=== PATIENT | female | born 1985 | race American Indian/Alaskan Native ===

== ENCOUNTER 2017-05-26 04:14 | Day surgery (SDC) | payer BC ==
[2017-05-26] MEDS ORDERED: HYDROmorphone 1 MG/ML Syringe IVPUSH ONE (04:54)
[2017-05-26] MEDS ORDERED: Ondansetron 4 MG/2 ML SDV IVPUSH ONE (04:54)
[2017-05-26] MEDS ORDERED: Sodium Chloride 0.9% 1,000 ML IV SCH (05:00)
--- NOTE | 2017-05-26 05:00 | EDM.PDOC ---
<Demetrius Suarez - Last Filed: 05/26/17 06:49> ED HPI GENERAL MEDICAL PROBLEM - General Chief Complaint: Abdominal Pain Stated Complaint: BAD STOMACH PAIN Time Seen by Provider: 05/26/17 04:20 Source of Information: Reports: Patient History Limitations: Reports: No Limitations - History of Present Illness INITIAL COMMENTS - FREE TEXT/NARRATIVE: The patient states that she vomited sometime before midnight tonight, then developed sharp, burning epigastric pain around midnight. It was initially mild , but was severe enough to wake the patient around 03:00 this morning, and has become progressively worse since. The pain is worse if she is supine, better if she is upright. The pain does not radiate. She feels nauseated at this time. No recent constipation or diarrhea. No recent urinary symptoms. No recent fever. No prior similar symptoms. The patient has not tried any home remedies. Her last oral solid intake was a hamburger at 20:00 last night. Her last oral fluid intake was around midnight. The patient drove herself to the ED. The patient's PCP is Dr. Watson. Abdomen Pain Score (Numeric/FACES): 8 - Related Data Allergies Allergy/AdvReac Type Severity Reaction Status Date / Time turkey Allergy Headache Uncoded 06/01/16 03:44 Home Meds: Home Meds . 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 - Past Surgical History HEENT Surgical History: Reports: LASIK (bilateral) Social & Family History - Family History Family Medical History: Noncontributory - Tobacco Use Smoking Status *Q: Former Smoker Years of Tobacco use: 9 Packs/Tins Daily: 0 Used Tobacco, but Quit: Yes Month Tobacco Last Used: 2015 Second Hand Smoke Exposure: No - Caffeine Use Caffeine Use: Reports: Coffee, Tea Other Caffeine Use: Cup twice per week Caffeine Use Comment: may have a cup or two of coffee - Recreational Drug Use Recreational Drug Use: No ED ROS GENERAL - Review of Systems Review Of Systems: ROS reveals no pertinent complaints other than HPI. ED EXAM, GI/ABD - Physical Exam Exam: See Below Exam Limited By: No Limitations General Appearance: Alert, WD/WN, Mild Distress (Appears uncomfortable) Eyes: Bilateral: Normal Appearance, EOMI Ears: Normal External Exam, Hearing Grossly Normal Nose: Normal Inspection, No Blood Throat/Mouth: Normal Inspection, Normal Lips, Normal Voice, No Airway Compromise Head: Atraumatic, Normocephalic Neck: Normal Inspection, Full Range of Motion Respiratory/Chest: No Respiratory Distress, Lungs Clear, Normal Breath Sounds, No Accessory Muscle Use Cardiovascular: Normal Peripheral Pulses, Regular Rate, Rhythm, No Gallop, No JVD, No Murmur, No Rub GI/Abdominal Exam: Normal Bowel Sounds, Soft, No Organomegaly, No Distention, No Abnormal Bruit, No Mass, Tender (Right upper quadrant only. Nontender elsewhere, although palpation of the left abdomen induces pain in the right upper quadrant), Other (Obese) (Female) Exam: Deferred Rectal (Female) Exam: Deferred Back Exam: Normal Inspection, Full Range of Motion. No: CVA Tenderness (L), CVA Tenderness (R) Extremities: Normal Inspection, Normal Range of Motion, No Pedal Edema, Normal Capillary Refill Neurological: Alert, Oriented, Normal Cognition, No Motor/Sensory Deficits Psychiatric: Normal Affect Skin Exam: Warm, Dry, Intact, Normal Color, No Rash Course - Vital Signs Last Recorded V/S: Last Vital Signs Temp 36.8 C 05/26/17 13:58 Pulse 82 05/26/17 13:58 Resp 16 05/26/17 13:58 BP 106/57 L 05/26/17 13:58 Pulse Ox 97 05/26/17 13:58 - Orders/Labs/Meds Orders: Active Orders 24 hr Category Date Time Status Admission Status [Patient Status] [ADT] Routine ADT 05/26/17 11:01 Active Communication Order [RC] ROUTINE Care 05/26/17 12:30 Active Cooling Warming Measures [RC] ASDIRECTED Care 05/26/17 12:30 Active Notify Provider [RC] ASDIRECTED Care 05/26/17 12:30 Active Oxygen Therapy [RC] ASDIRECTED Care 05/26/17 12:30 Active Pulse Oximetry [RC] ASDIRECTED Care 05/26/17 12:30 Active Ready for Discharge [RC] PER UNIT ROUTINE Care 05/26/17 12:10 Active Vital Signs [RC] Q15M Care 05/26/17 12:30 Active Acetaminophen/HYDROcodone [[place] 325-5 MG] Med 05/26/17 12:57 Active 1 tab PO Q6H PRN HYDROmorphone [Dilaudid] Med 05/26/17 12:30 Active 0.5 mg IVPUSH Q15M PRN Lactated Ringers [Ringers, Lactated] 1,000 ml Med 05/26/17 09:30 Active IV .BOLUS Sodium Chloride 0.9% [Normal Saline] 1,000 ml Med 05/26/17 05:00 Active IV ASDIRECTED fentaNYL [Sublimaze] Med 05/26/17 12:30 Active 50 mcg IVPUSH Q5M PRN Schedule Procedure [COMM] Stat Oth 05/26/17 11:02 Ordered Medication Orders Hydrocodone Bitart/Acetaminophen ([place] 325-5 Mg) 1 tab PO Q6H PRN PRN Reason: Pain Fentanyl (Sublimaze) 50 mcg IVPUSH Q5M PRN PRN Reason: PAIN Hydromorphone HCl (Dilaudid) 0.5 mg IVPUSH Q15M PRN PRN Reason: Pain Sodium Chloride (Normal Saline) 1,000 mls @ 999 mls/hr IV ASDIRECTED RUPERT Last Admin: 05/26/17 05:08 Dose: 150 mls/hr Lactated Ringer's (Ringers, Lactated) 1,000 mls @ 150 mls/hr IV .BOLUS [facility] Last Admin: 05/26/17 10:30 Dose: 150 mls/hr Labs: Laboratory Tests 05/26/17 05/26/17 05/26/17 Range/Units 04:32 04:32 05:10 WBC 11.85 H (3.98-10.04) K/mm3 RBC 4.95 (3.98-5.22) M/mm3 Hgb 14.4 (11.2-15.7) gm/L Hct 42.2 (34.1-44.9) % MCV 85.3 (79.4-94.8) fl MCH 29.1 (25.6-32.2) pg MCHC 34.1 (32.2-35.5) g/dl RDW Std Deviation 40.2 (36.4-46.3) fL Plt Count 250 (182-369) K/mm3 MPV 9.3 L (9.4-12.3) fl Neutrophils % (Manual) 74 H (40-60) % Band Neutrophils % 3 (0-10) % Lymphocytes % (Manual) 19 L (20-40) % Atypical Lymphs % 0 % Monocytes % (Manual) 1 L (2-10) % Eosinophils % (Manual) 3 (0.7-5.8) % Basophils % (Manual) 0 L (0.1-1.2) Platelet Estimate Adequate RBC Morph Comment Normal Sodium (136-145) mEq/L Potassium (3.5-5.1) mEq/L Chloride (98-107) mEq/L Carbon Dioxide (21-32) mEq/L Anion Gap (5-15) BUN (7-18) mg/dL Creatinine (0.55-1.02) mg/dL Est Cr Clr Drug Dosing mL/min Estimated GFR (MDRD) (>60) mL/min BUN/Creatinine Ratio (14-18) Glucose (74-106) mg/dL Calcium (8.5-10.1) mg/dL Total Bilirubin (0.2-1.0) mg/dL AST (15-37) U/L ALT (14-59) U/L Alkaline Phosphatase (46-116) U/L C-Reactive Protein (<1.0) mg/dL Total Protein (6.4-8.2) g/dl Albumin (3.4-5.0) g/dl Globulin gm/dL Albumin/Globulin Ratio (1-2) Lipase (73-393) U/L Urine Color Yellow (Yellow) Urine Appearance Slt cloudy H (Clear) Urine pH 6.0 (5.0-8.0) Ur Specific [place] > or = 1.030 (1.005-1.030) Urine Protein Negative (Negative) Urine Glucose (UA) Negative (Negative) Urine Ketones Negative (Negative) Urine Occult Blood Negative (Negative) Urine Nitrite Negative (Negative) Urine Bilirubin Negative (Negative) Urine Urobilinogen 0.2 (0.2-1.0) Ur Leukocyte Esterase Negative (Negative) Urine RBC 0-5 (0-5) /hpf Urine WBC 0-5 (0-5) /hpf Ur Epithelial Cells 5-10 H (0-5) /hpf Urine Bacteria Few (FEW) /hpf Urine Mucus Moderate H (FEW) /hpf Urine HCG, Qual Negative (NEGATIVE) 05/26/17 05/26/17 05/26/17 Range/Units 05:10 05:10 08:30 WBC 14.93 H (3.98-10.04) K/mm3 RBC 4.72 (3.98-5.22) M/mm3 Hgb 13.6 (11.2-15.7) gm/L Hct 40.3 (34.1-44.9) % MCV 85.4 (79.4-94.8) fl MCH 28.8 (25.6-32.2) pg MCHC 33.7 (32.2-35.5) g/dl RDW Std Deviation 40.4 (36.4-46.3) fL Plt Count 239 (182-369) K/mm3 MPV 8.8 L (9.4-12.3) fl Neutrophils % (Manual) 79 H (40-60) % Band Neutrophils % 12 H (0-10) % Lymphocytes % (Manual) 7 L (20-40) % Atypical Lymphs % 0 % Monocytes % (Manual) 2 (2-10) % Eosinophils % (Manual) 0 L (0.7-5.8) % Basophils % (Manual) 0 L (0.1-1.2) Platelet Estimate Adequate RBC Morph Comment Normal Sodium 139 (136-145) mEq/L Potassium 3.6 (3.5-5.1) mEq/L Chloride 105 (98-107) mEq/L Carbon Dioxide 24 (21-32) mEq/L Anion Gap 13.6 (5-15) BUN 9 (7-18) mg/dL Creatinine 0.7 (0.55-1.02) mg/dL Est Cr Clr Drug Dosing 90.41 mL/min Estimated GFR (MDRD) > 60 (>60) mL/min BUN/Creatinine Ratio 12.9 L (14-18) Glucose 135 H (74-106) mg/dL Calcium 8.7 (8.5-10.1) mg/dL Total Bilirubin 0.4 (0.2-1.0) mg/dL AST 17 (15-37) U/L ALT 41 (14-59) U/L Alkaline Phosphatase 85 (46-116) U/L C-Reactive Protein 1.2 H* (<1.0) mg/dL Total Protein 7.7 (6.4-8.2) g/dl Albumin 3.5 (3.4-5.0) g/dl Globulin 4.2 gm/dL Albumin/Globulin Ratio 0.8 L (1-2) Lipase 84 (73-393) U/L Urine Color (Yellow) Urine Appearance (Clear) Urine pH (5.0-8.0) Ur Specific [place] (1.005-1.030) Urine Protein (Negative) Urine Glucose (UA) (Negative) Urine Ketones (Negative) Urine Occult Blood (Negative) Urine Nitrite (Negative) Urine Bilirubin (Negative) Urine Urobilinogen (0.2-1.0) Ur Leukocyte Esterase (Negative) Urine RBC (0-5) /hpf Urine WBC (0-5) /hpf Ur Epithelial Cells (0-5) /hpf Urine Bacteria (FEW) /hpf Urine Mucus (FEW) /hpf Urine HCG, Qual (NEGATIVE) Meds: Medications Generic Name Dose Route Start Last Admin Trade Name Freq PRN Reason Stop Dose Admin Hydrocodone Bitart/Acetaminophen 1 tab 05/26/17 12:57 [place] 325-5 Mg PO Q6H PRN Pain Fentanyl 50 mcg 05/26/17 12:30 Sublimaze IVPUSH Q5M PRN PAIN Hydromorphone HCl 0.5 mg 05/26/17 12:30 Dilaudid IVPUSH Q15M PRN Pain Sodium Chloride 1,000 mls @ 999 mls/hr 05/26/17 05:00 05/26/17 05:08 Normal Saline IV 150 mls/hr ASDIRECTED RUPERT Administration Lactated Ringer's 1,000 mls @ 150 mls/hr 05/26/17 09:30 05/26/17 10:30 Ringers, Lactated IV 150 mls/hr .BOLUS RUPERT Administration Discontinued Medications Generic Name Dose Route Start Last Admin Trade Name Freq PRN Reason Stop Dose Admin Bupivacaine HCl Confirm 05/26/17 10:44 05/26/17 11:24 Marcaine 0.5% Administered 05/26/17 10:45 15 ml Dose Administration 30 ml .ROUTE .STK-MED ONE Diatrizoate Meglum/Diatrizoate Sod 90 ml 05/26/17 07:05 05/26/17 07:21 Gastrografin 37% PO 05/26/17 07:06 90 ml ONETIME ONE Administration Dicyclomine HCl 20 mg 05/26/17 07:55 Bentyl PO 05/26/17 07:56 ONETIME ONE Fentanyl Confirm 05/26/17 10:47 Sublimaze Administered 05/26/17 10:48 Dose 250 mcg .ROUTE .STK-MED ONE Fentanyl Confirm 05/26/17 12:16 Sublimaze Administered 05/26/17 12:17 Dose 100 mcg .ROUTE .STK-MED ONE Hydromorphone HCl 1 mg 05/26/17 04:54 05/26/17 05:09 Dilaudid IVPUSH 05/26/17 04:55 1 mg ONETIME ONE Administration Hydromorphone HCl 0.5 mg 05/26/17 07:55 05/26/17 08:04 Dilaudid IVPUSH 05/26/17 07:56 0.5 mg ONETIME ONE Administration Hydromorphone HCl 0.5 mg 05/26/17 10:34 05/26/17 10:55 Dilaudid IVPUSH 05/26/17 10:35 0.5 mg ONETIME ONE Administration Hyoscyamine 0.125 mg 05/26/17 07:54 05/26/17 08:04 Hyomax-Sl SL 05/26/17 07:55 0.125 mg ONETIME ONE Administration Cefoxitin Sodium 2 gm/ Premix 50 mls @ 100 mls/hr 05/26/17 08:20 05/26/17 08: 30 IV 05/26/17 08:49 100 mls/hr ONETIME ONE Administration Metronidazole 500 mg/ Premix 100 mls @ 100 mls/hr 05/26/17 08:23 05/26/17 09: 03 IV 05/26/17 09:22 100 mls/hr ONETIME ONE Administration Lactated Ringer's Confirm 05/26/17 11:50 Ringers, Lactated Administered 05/26/17 11:51 Dose 1,000 mls @ as directed .ROUTE .STK-MED ONE Iopamidol 100 ml 05/26/17 07:05 05/26/17 07:21 Isovue-300 (61%) IVPUSH 05/26/17 07:06 100 ml ONETIME ONE Administration Metoclopramide HCl 7.5 mg 05/26/17 07:55 05/26/17 08:03 Reglan IVPUSH 05/26/17 07:56 7.5 mg ONETIME ONE Administration Midazolam HCl Confirm 05/26/17 10:47 Versed 1 Mg/Ml Administered 05/26/17 10:48 Dose 2 mg .ROUTE .STK-MED ONE Ondansetron HCl 4 mg 05/26/17 04:54 05/26/17 05:09 Zofran IVPUSH 05/26/17 04:55 4 mg ONETIME ONE Administration Ondansetron HCl Confirm 05/26/17 10:47 Zofran Administered 05/26/17 10:48 Dose 4 mg .ROUTE .STK-MED ONE Propofol Confirm 05/26/17 10:47 Diprivan 20 Ml Administered 05/26/17 10:48 Dose 200 mg .ROUTE .STK-MED ONE Rocuronium [place] Confirm 05/26/17 10:47 Zemuron Administered 05/26/17 10:48 Dose 50 mg .ROUTE .STK-MED ONE Sodium Chloride 10 ml 05/26/17 07:05 05/26/17 07:21 Saline Flush FLUSH 05/26/17 07:06 10 ml ONETIME ONE Administration - Re-Assessments/Exams Free Text/Narrative Re-Assessment/Exam: 05/26/17 06:20 Ultrasound of the right upper quadrant is read by [facility] as: 1. Diffuse hepatic steatosis, new from prior ultrasonography. 2. Otherwise unremarkable right upper quadrant ultrasound. No biliary ductal dilatation or evidence of acute cholecystitis. 05/26/17 07:[address] Turcios, and care of the patient turned over to him at this time, for change of shift. Departure - Departure Disposition: DC/Tfer to [facility] Clinical Impression: Appendicitis Qualifiers: Appendicitis type: acute appendicitis Acute appendicitis type: with localized peritonitis Qualified Code(s): K35.3 - Acute appendicitis with localized peritonitis - Discharge Information - My Orders Last 24 Hours: My Active Orders 05/26/17 09:30 Lactated Ringers [Ringers, Lactated] 1,000 ml IV .BOLUS - Assessment/Plan Last 24 Hours: My Active Orders 05/26/17 09:30 Lactated Ringers [Ringers, Lactated] 1,000 ml IV .BOLUS <Charles Turcios - Last Filed: 05/26/17 21:27> Past Medical History HEENT History: Reports: Otitis Media Social & Family History - Living Situation & Occupation Living situation: Reports: Occupation: Unemployed Course - Re-Assessments/Exams Free Text/Narrative Re-Assessment/Exam: 05/26/17 07:[address] Suarez at change of shift. Gallbladder ultrasound reviewed and no stones are evident, GB wall is perhaps mildly thickened. No obstruction of the common bile duct is evident. Pancreatic head appears normal. No dilatation of the extrahepatic ducts. White count was mildly elevated at 11.85 with a mild left shift of 74% neutrophils and 3% band cells at time of admission to the ED. She is facial contrast and will be going to CT within half an hour or so. 05/26/17 07:38 patient has returned from the CT suite. CT of the abdomen and pelvis has been performed with oral and IV contrast. Patient does have a moderate sized hiatal hernia with contrast within the distal esophagus. Remainder of the CT appears to be within normal limits .Normal liver, pancreas and gallbladder and spleen .Both kidneys and ureters are normal. Small fat- containing umbilical hernia noted. No abnormalities the bowel are appreciated other than mildly increased stool throughout the right hemicolon. She does have an appendicolith in the appendix appears to be mildly dilated but I don't see a lot of periappendiceal inflammation. No free fluid in the pelvis. Both ovaries are identified and appear to be normal. Therefore differential diagnosis is acute biliary colic versus hiatal hernia as a cause of her pain last night. 05/26/17 07:42 On examination she continues to have epigastric pain that radiates slightly up into the chest. Currently she relates it rates it as a 5 out of 10 with associated nausea. She certainly does not feel like she could eat. This strongly suggested that she has a bit of stomach herniated up into the diaphragmatic opening causing pain. We'll give her Levsin 0.125 mg sublingual Dilaudid 0.5 mg IV with Reglan 7.5 mg IV. 05/26/17 08:14 [facility] radiologist called and feels that the patient is exhibiting CT signs of acute appendicitis. Recognized the phlebolith(s) and he feels the appendix is dilated to upper limits of normal--1.1cm in greastest dimension with mild periappendiceal inflammation to suggest acute appendicitis. I will therefore have Dr. Coffey from the department of surgery consult in this regard. I discussed the findings with the patient and did examine her right lower quadrant and she is not guarding clinically. However on deep palpation over McBurney's point she is definitely very tender and on deep palpation she does reveal rebound tenderness. 05/26/17 08:[address] Coffey and he advises placing her on cefoxitin and Flagyl IV antibiotics and he will be in to see her this morning. Given cefoxitin 2 g IV and this will be followed by Flagyl 500 mg IV. 05/26/17 08:50 labs reveal an elevated white count now at 14.93 with an increased left shift of 79% neutrophils and 12% band cells. 05/26/17 10:34 abdominal pain is starting to come back. Will therefore repeat Dilaudid 0.5 mg IV. Departure - Departure Time of Disposition: 11:00 Condition: Fair
[2017-05-26] MEDS ORDERED: Diatrizoate Meglumine/Diatrizoate Sodium 37% 120 ML Bottle PO ONE (07:05)
[2017-05-26] MEDS ORDERED: Sodium Chloride 0.9% 10 ML Syringe FLUSH ONE (07:05)
[2017-05-26] MEDS ORDERED: Iopamidol 612 MG/ML 100 ML Bottle IVPUSH ONE (07:05)
[2017-05-26] MEDS ORDERED: Hyoscyamine 0.125 MG Tab.SL SL ONE (07:54)
[2017-05-26] MEDS ORDERED: Dicyclomine 10 MG Cap PO ONE (07:55)
[2017-05-26] MEDS ORDERED: HYDROmorphone 0.5 MG/0.5 ML Syringe IVPUSH ONE ×2 (07:55→10:34)
[2017-05-26] MEDS ORDERED: Metoclopramide 10 MG/2 ML SDV IVPUSH ONE (07:55)
[2017-05-26] MEDS ORDERED: cefOXitin 2 GM in Premix Bag 1 BAG IV ONE (08:20)
[2017-05-26] MEDS ORDERED: metroNIDAZOLE/Normal Saline 500 MG in Premix Bag 1 BAG IV ONE (08:23)
[2017-05-26] MEDS ORDERED: Lactated Ringers 1,000 ML IV SCH (09:30)
--- NOTE | 2017-05-26 10:19 | PCM.PREANE ---
Preanesthetic Assessment - Anesthesia/Transfusion/Family Hx Anesthesia History: Prior Anesthesia Without Reaction Family History of Anesthesia Reaction: No Transfusion History: No Prior Transfusion(s) - Review of Systems General: Fatigue, Malaise Pulmonary: Cough Cardiovascular: No Symptoms Gastrointestinal: Abdominal Pain, Constipation Neurological: No Symptoms Other: Reports: None - Physical Assessment NPO Status Date: 05/25/17 NPO Status Time: 07:00 Pulse: 70 O2 Sat by Pulse Oximetry: 98 Respiratory Rate: 19 Blood Pressure: 120/81 Temperature: 37.1 C Vital Signs: Last Vital Signs Temp 37.1 C 05/26/17 04:22 Pulse 70 05/26/17 04:22 Resp 19 05/26/17 04:22 BP 120/81 05/26/17 04:22 Pulse Ox 98 05/26/17 04:22 Height: 1.57 m Weight: 79.832 kg ASA Class: 2E Mental Status: Alert & Oriented x3 Airway Class: Mallampati = 2 Dentition: Reports: Normal Dentition, [place](s) Thyro-Mental Finger Breadths: 2 Mouth Opening Finger Breadths: 2 ROM/Head Extension: Full Lungs: Clear to Auscultation, Normal Respiratory Effort Cardiovascular: Regular Rate, Regular Rhythm, No Murmurs - Lab Values: Laboratory Last Values WBC 14.93 K/mm3 (3.98-10.04) H 05/26/17 08:30 RBC 4.72 M/mm3 (3.98-5.22) 05/26/17 08:30 Hgb 13.6 gm/L (11.2-15.7) 05/26/17 08:30 Hct 40.3 % (34.1-44.9) 05/26/17 08:30 MCV 85.4 fl (79.4-94.8) 05/26/17 08:30 MCH 28.8 pg (25.6-32.2) 05/26/17 08:30 MCHC 33.7 g/dl (32.2-35.5) 05/26/17 08:30 RDW Std Deviation 40.4 fL (36.4-46.3) 05/26/17 08:30 Plt Count 239 K/mm3 (182-369) 05/26/17 08:30 MPV 8.8 fl (9.4-12.3) L 05/26/17 08:30 Neutrophils % (Manual) 79 % (40-60) H 05/26/17 08:30 Band Neutrophils % 12 % (0-10) H 05/26/17 08:30 Lymphocytes % (Manual) 7 % (20-40) L 05/26/17 08:30 Atypical Lymphs % 0 % 05/26/17 08:30 Monocytes % (Manual) 2 % (2-10) 05/26/17 08:30 Eosinophils % (Manual) 0 % (0.7-5.8) L 05/26/17 08:30 Basophils % (Manual) 0 (0.1-1.2) L 05/26/17 08:30 Platelet Estimate Adequate 05/26/17 08:30 RBC Morph Comment Normal 05/26/17 08:30 Sodium 139 mEq/L (136-145) 05/26/17 05:10 Potassium 3.6 mEq/L (3.5-5.1) 05/26/17 05:10 Chloride 105 mEq/L (98-107) 05/26/17 05:10 Carbon Dioxide 24 mEq/L (21-32) 05/26/17 05:10 Anion Gap 13.6 (5-15) 05/26/17 05:10 BUN 9 mg/dL (7-18) 05/26/17 05:10 Creatinine 0.7 mg/dL (0.55-1.02) 05/26/17 05:10 Est Cr Clr Drug Dosing 90.41 mL/min 05/26/17 05:10 Estimated GFR (MDRD) > 60 mL/min (>60) 05/26/17 05:10 BUN/Creatinine Ratio 12.9 (14-18) L 05/26/17 05:10 Glucose 135 mg/dL (74-106) H 05/26/17 05:10 Calcium 8.7 mg/dL (8.5-10.1) 05/26/17 05:10 Total Bilirubin 0.4 mg/dL (0.2-1.0) 05/26/17 05:10 AST 17 U/L (15-37) 05/26/17 05:10 ALT 41 U/L (14-59) 05/26/17 05:10 Alkaline Phosphatase 85 U/L (46-116) 05/26/17 05:10 C-Reactive Protein 1.2 mg/dL (<1.0) H* 05/26/17 05:10 Total Protein 7.7 g/dl (6.4-8.2) 05/26/17 05:10 Albumin 3.5 g/dl (3.4-5.0) 05/26/17 05:10 Globulin 4.2 gm/dL 05/26/17 05:10 Albumin/Globulin Ratio 0.8 (1-2) L 05/26/17 05:10 Lipase 84 U/L (73-393) 05/26/17 05:10 Urine Color Yellow (Yellow) 05/26/17 04:32 Urine Appearance Slt cloudy (Clear) H 05/26/17 04:32 Urine pH 6.0 (5.0-8.0) 05/26/17 04:32 Ur Specific [place] > or = 1.030 (1.005-1.030) 05/26/17 04:32 Urine Protein Negative (Negative) 05/26/17 04:32 Urine Glucose (UA) Negative (Negative) 05/26/17 04:32 Urine Ketones Negative (Negative) 05/26/17 04:32 Urine Occult Blood Negative (Negative) 05/26/17 04:32 Urine Nitrite Negative (Negative) 05/26/17 04:32 Urine Bilirubin Negative (Negative) 05/26/17 04:32 Urine Urobilinogen 0.2 (0.2-1.0) 05/26/17 04:32 Ur Leukocyte Esterase Negative (Negative) 05/26/17 04:32 Urine RBC 0-5 /hpf (0-5) 05/26/17 04:32 Urine WBC 0-5 /hpf (0-5) 05/26/17 04:32 Ur Epithelial Cells 5-10 /hpf (0-5) H 05/26/17 04:32 Urine Bacteria Few /hpf (FEW) 05/26/17 04:32 Urine Mucus Moderate /hpf (FEW) H 05/26/17 04:32 Urine HCG, Qual Negative (NEGATIVE) 05/26/17 04:32 - Allergies Allergies/Adverse Reactions: Allergies Allergy/AdvReac Type Severity Reaction Status Date / Time turkey Allergy Headache Uncoded 06/01/16 03:44 - Anesthesia Plan Pre-Op Medication Ordered: None - Acknowledgements Anesthesia Type Planned: General Anesthesia Pt an Appropriate Candidate for the Planned Anesthesia: Yes Alternatives and Risks of Anesthesia Discussed w Pt/Guardian: Yes Pt/Guardian Understands and Agrees with Anesthesia Plan: Yes PreAnesthesia Questionnaire - Past Health History Medical/Surgical History: Denies Medical/Surgical History HEENT History: Reports: Otitis Media Respiratory History: Reports: Asthma Gastrointestinal History: Reports: GERD [employer] History: Reports: Endocrine/Metabolic History: Reports: Diabetes, Gestational, Obesity/BMI 30+ - Infectious Disease History Infectious Disease History: Reports: Hepatitis B, Other (See Below) Other Infectious Disease History: history of hep B in [place] in 1995, was cleared. - Past Surgical History HEENT Surgical History: Reports: LASIK (bilateral) - SUBSTANCE USE Smoking Status *Q: Former Smoker Tobacco Use Within Last Twelve Months: Cigarettes Second Hand Smoke Exposure: No Days Per Week of Alcohol Use: 0 Number of Drinks Per Day: 0 Total Drinks Per Week: 0 Recreational Drug Use History: No - HOME MEDS Home Medications: Home Meds . [No Known Home Meds] 05/26/17 [History] - CURRENT (IN HOUSE) MEDS Current Meds: Current Medications Sodium Chloride (Normal Saline) 1,000 mls @ 999 mls/hr IV ASDIRECTED RUPERT Last Admin: 05/26/17 05:08 Dose: 150 mls/hr Lactated Ringer's (Ringers, Lactated) 1,000 mls @ 150 mls/hr IV .BOLUS RUPERT Discontinued Medications Diatrizoate Meglum/Diatrizoate Sod (Gastrografin 37%) 90 ml PO ONETIME ONE Stop: 05/26/17 07:06 Last Admin: 05/26/17 07:21 Dose: 90 ml Dicyclomine HCl (Bentyl) 20 mg PO ONETIME ONE Stop: 05/26/17 07:56 Hydromorphone HCl (Dilaudid) 1 mg IVPUSH ONETIME ONE Stop: 05/26/17 04:55 Last Admin: 05/26/17 05:09 Dose: 1 mg Hydromorphone HCl (Dilaudid) 0.5 mg IVPUSH ONETIME ONE Stop: 05/26/17 07:56 Last Admin: 05/26/17 08:04 Dose: 0.5 mg Hyoscyamine (Hyomax-Sl) 0.125 mg SL ONETIME ONE Stop: 05/26/17 07:55 Last Admin: 05/26/17 08:04 Dose: 0.125 mg Cefoxitin Sodium 2 gm/ Premix 50 mls @ 100 mls/hr IV ONETIME ONE Stop: 05/26/17 08:49 Last Admin: 05/26/17 08:30 Dose: 100 mls/hr Metronidazole 500 mg/ Premix 100 mls @ 100 mls/hr IV ONETIME ONE Stop: 05/26/17 09:22 Last Admin: 05/26/17 09:03 Dose: 100 mls/hr Iopamidol (Isovue-300 (61%)) 100 ml IVPUSH ONETIME ONE Stop: 05/26/17 07:06 Last Admin: 05/26/17 07:21 Dose: 100 ml Metoclopramide HCl (Reglan) 7.5 mg IVPUSH ONETIME ONE Stop: 05/26/17 07:56 Last Admin: 05/26/17 08:03 Dose: 7.5 mg Ondansetron HCl (Zofran) 4 mg IVPUSH ONETIME ONE Stop: 05/26/17 04:55 Last Admin: 05/26/17 05:09 Dose: 4 mg Sodium Chloride (Saline Flush) 10 ml FLUSH ONETIME ONE Stop: 05/26/17 07:06 Last Admin: 05/26/17 07:21 Dose: 10 ml
[2017-05-26] MEDS ORDERED: Bupivacaine 0.5% 30 ML SDV ONE (10:44)
[2017-05-26] MEDS ORDERED: Ondansetron 4 MG/2 ML SDV ONE (10:47)
[2017-05-26] MEDS ORDERED: Propofol 200 MG/20 ML SDV ONE (10:47)
[2017-05-26] MEDS ORDERED: fentaNYL 250 MCG/5 ML SDV ONE (10:47)
[2017-05-26] MEDS ORDERED: Rocuronium 50 MG/5 ML Vial ONE (10:47)
[2017-05-26] MEDS ORDERED: Midazolam 1 MG/ML 2 ML SDV ONE (10:47)
--- NOTE | 2017-05-26 11:12 | US ---
Limited abdominal ultrasound: Multiple real-time images were obtained of the upper right abdomen. Comparison: Prior right upper quadrant abdominal ultrasound of 03/22/16 is available. Findings: Pancreas appears within normal limits. Liver shows no focal parenchymal abnormality. Liver may be slightly echogenic representing fatty infiltration. Gallbladder shows no gallstones. No gallbladder wall thickening or biliary duct dilatation is seen. Right kidney shows no hydronephrosis or mass. Right kidney has a length of 10.6 cm. Impression: 1. Fatty infiltration within the liver. This appears as an interval change from prior abdominal ultrasound. 2. No additional abnormality is identified on right upper quadrant abdominal ultrasound exam. Diagnostic code #3 I agree with preliminary report issued by [facility] ([facility] report finalized on 05/26/17, 7:16 AM Central Time)
[2017-05-26] MEDS ORDERED: Lactated Ringers 1,000 ML ONE (11:50)
--- NOTE | 2017-05-26 12:08 | PCM.OPNOTE ---
- General Post-Op/Procedure Note Date of Surgery/Procedure: 05/26/17 Operative Procedure(s): lap appy Findings: acute appendicitis Pre Op Diagnosis: acute appendicitis Post-Op Diagnosis: Same Anesthesia Technique: General ET Tube Primary Surgeon: Aries Coffey EBL in mLs: 0 Complications: None Condition: Good
[2017-05-26] MEDS ORDERED: fentaNYL 100 MCG/2 ML SDV ONE (12:16)
[2017-05-26] MEDS ORDERED: HYDROmorphone 0.5 MG/0.5 ML Syringe IVPUSH PRN (12:30)
[2017-05-26] MEDS ORDERED: fentaNYL 250 MCG/5 ML SDV IVPUSH PRN (12:30)
--- NOTE | 2017-05-26 12:31 | PCM.POSTAN ---
POST ANESTHESIA ASSESSMENT - MENTAL STATUS Mental Status: Alert, Oriented - VITAL SIGNS Pulse Rate: 109 SaO2: 97 Resp Rate: 20 Blood Pressure: 98/45 Temperature: 36.8 C - RESPIRATORY Respiratory Status: Respiratory Rate WNL, Airway Patent, O2 Saturation Stable, Supplemental Oxygen - CARDIOVASCULAR CV Status: Pulse Rate WNL, Blood Pressure Stable - GASTROINTESTINAL GI Status: No Symptoms - PAIN Pain Score: 0 - POST OP HYDRATION Hydration Status: Adequate & Stable - OBSERVATIONS Free Text/Narrative:: no anesthesia complications noted
[2017-05-26] MEDS ORDERED: Acetaminophen/HYDROcodone 325-5 MG Tab PO PRN (12:57)
--- NOTE | 2017-05-26 13:55 | CT ---
CT abdomen and pelvis Technique: Multiple axial sections were obtained from above the dome of the diaphragm inferiorly through the pubic symphysis. Intravenous and oral contrast was utilized. Delayed images were also obtained through the bladder. Comparison: Previous right upper quadrant abdominal ultrasound performed earlier on the same date (5:25 AM), no previous CT examination. Findings: Appendix is dilated and contains appendicoliths. Findings are felt compatible with early appendicitis. Visualized lung bases show nothing acute. Liver shows mild fatty infiltration. Focal abnormality is seen next to the ligament teres fissure which is compatible with focal fat which is a normal variant. Spleen appears within normal limits. Contrast is seen within the distal esophagus compatible with reflux. Adrenal glands show no nodule. Kidneys show symmetric contrast enhancement without hydronephrosis or mass. Fat containing umbilical hernia is noted. Aorta shows no aneurysmal dilatation. No retroperitoneal adenopathy or mesenteric abnormalities are seen. No pelvic mass or adenopathy is seen. Delayed images show contrast within the distal ureters and within the bladder. Bone window settings were reviewed which appear within normal limits for the patient's age. Impression: 1. Dilated appendix containing appendicoliths compatible with early appendicitis. 2. Fatty infiltration within the liver and other incidental findings. Diagnostic code #5 I agree with preliminary report issued by [facility] ([facility] report finalized on 05/26/17, 9:15 AM Central Time)
[2017-05-26 14:02] VITALS: BP 106/57
--- NOTE | 2017-05-26 18:39 | HP ---
DATE OF ADMISSION: 05/26/2017 HISTORY OF PRESENT ILLNESS: This is a 31-year-old who noted vomiting some time around midnight, then sharp burning epigastric pain at midnight, initially mild but was severe enough to awaken the patient again about 3 o'clock this morning, became progressively worse. The pain seems to be better. She is upright. She came into the emergency room and evaluation of ultrasound was done showing a normal gallbladder. CT scan was then performed showing acute appendicitis. This pain was preceded by a diet of hamburger at about 10 o'clock. REVIEW OF SYSTEMS: No chest pain, shortness of breath, cough, hoarseness, wheezing, fainting, weakness, numbness, or convulsions. Did have some nausea and vomiting. FAMILY HISTORY: Mother has Parkinson's. CURRENT MEDICATIONS: None. SOCIAL HISTORY: No smoking, no drinking. Negative. PHYSICAL EXAMINATION: VITAL SIGNS: Reveals a temperature of 37, pulse 70, respirations 19, blood pressure 120/81. EYES: Sclerae are white. Extraocular muscle motion normal. Oral cavity: Healthy mucous membrane with mouth and tongue. NECK: Supple. No nodes. No thyromegaly. LUNGS: Clear. No rales, rhonchi, fremitus, or dullness. HEART: Heart tones regular rate. No S3, S4, jugular venous distention or murmurs. ABDOMEN: Shows tenderness to deep palpation in the right lower quadrant. No guarding. EXTREMITIES: No angulation deformities. NEUROLOGIC: Orientated x3. No sensorineural deficit. Cranial nerves 3 through 12 intact. PSYCHIATRIC: Normal. SKIN: Warm and dry. LABORATORY DATA: White count 11,000, hemoglobin 14. Urinalysis is negative. Electrolytes normal except for a C-reactive protein at 1.2. ASSESSMENT: Acute appendicitis. PLAN: Laparoscopic appendectomy. Discussed this procedure, the risks, the complications, understands and consented. We will proceed on an urgent basis. We will give antibiotics prior to going to the operating room and in the emergency room Flagyl and cefoxitin. MMODAL /[id number]
--- NOTE | 2017-05-27 07:33 | OR ---
DATE OF OPERATION: 05/26/2017 SURGEON: Aries Coffey MD PREOPERATIVE DIAGNOSIS: Acute appendicitis. POSTOPERATIVE DIAGNOSIS: Acute appendicitis. OPERATION PERFORMED: Laparoscopic appendectomy. ANESTHESIA: General anesthetic. ESTIMATED BLOOD LOSS: 0 mL. DESCRIPTION OF PROCEDURE: The patient was taken to the operating room, placed in a supine position, given a general anesthetic. Antibiotics were given. SCDs were placed and she was intubated. The abdomen was prepped with chlorhexidine prep, draped off in a sterile fashion. Incision was made just below the umbilicus, carried down by sharp dissection to the fascia, which was incised, abdominal cavity entered. Sondra trocar placed and secured with stay sutures, and a pneumoperitoneum established. A 5 mm 30-degree camera was inserted and the patient was placed in reverse Trendelenburg with leftward tilt showing the appendix in the right lower quadrant. A 5-mm trocar was placed in right upper quadrant and 1 in the right lower quadrant and a window was made at the base of the cecum and mesoappendix and Ethicon Endo-ligator was placed through this window, fired the appendix from the cecum. Another firing of the Endo-ligator the mesoappendix from the appendix. Endo-ligator was removed from the abdominal cavity and the appendix was placed in an Endobag and removed from the abdominal cavity. It was inspected and all parts were noted in the bag. Pneumoperitoneum was re-established. The area was checked and excellent hemostasis was noted and secured mesoappendix and there was secured appendicular stump. It was then aspirated fluid. This completed the intraabdominal portion. The ports were removed and the subumbilical port was closed with running 0 Vicryl suture and the skin of each port closed with subdermal 4-0 Dexon suture. Each port skin was injected with 0.5% Marcaine. Sterile dressings placed. The patient tolerated the procedure and sent to recovery room in a stable condition. MMAICHA /[id number]
== END 2017-05-26 14:12 | disposition home or self-care (01) ==
LOC: JD.ED 04:14 → JD.SDS 11:00
PROVIDERS: ATTEND Surgery
DX: K35.80 Unspecified acute appendicitis (principal); Z91.018 Allergy to other foods
CPT/HCPCS: 36415; 44970; 74177; 76705; 80053; 81001; 81025; 83690; 85025; 86140; 87804; 96361; 96365; 96367; 96375; 96376; 99285; A9270; J0694; J1170; J2250; J2405; J2765; J3010; J7040; J7050; J7120; Q9963; Q9967; 00840; 99284; J2704

== ENCOUNTER 2018-08-31 05:09 | Inpatient (IN) | payer BC ==
[2018-08-31] MEDS ORDERED: Nalbuphine 20 MG/ML 1 ML Syringe IVPUSH PRN (07:31)
[2018-08-31] MEDS ORDERED: Sodium Chloride 0.9% 10 ML Syringe FLUSH PRN (07:31)
[2018-08-31] MEDS ORDERED: Oxytocin/Lactated Ringers 10 UNIT/1,000 ML BAG IV SCH (07:45)
[2018-08-31] MEDS: Lactated Ringers 1,000 ML IV SCH ×3 (08:13→18:37)
[2018-08-31] MEDS: Oxytocin/Lactated Ringers 10 UNIT/1,000 ML BAG IV SCH ×2 (08:14→19:48)
--- NOTE | 2018-08-31 08:40 | PCM.PREANE ---
Preanesthetic Assessment - Procedure Proposed Procedure: des - Anesthesia/Transfusion/Family Hx Anesthesia History: Prior Anesthesia Without Reaction Family History of Anesthesia Reaction: No Transfusion History: No Prior Transfusion(s) - Review of Systems General: No Symptoms Pulmonary: No Symptoms Cardiovascular: No Symptoms Gastrointestinal: No Symptoms Neurological: No Symptoms Other: Reports: None - Physical Assessment Pulse: 94 Respiratory Rate: 20 Blood Pressure: 116/73 Height: 5 ft 2 in Weight: 93.894 kg ASA Class: 2 Mental Status: Alert & Oriented x3 Airway Class: Mallampati = 1 Dentition: Reports: Normal Dentition Thyro-Mental Finger Breadths: 3 Mouth Opening Finger Breadths: 3 ROM/Head Extension: Full Lungs: Clear to Auscultation, Normal Respiratory Effort Cardiovascular: Regular Rate, Regular Rhythm - Lab Values: Laboratory Last Values WBC 9.15 K/mm3 (3.98-10.04) 08/31/18 07:43 RBC 4.26 M/mm3 (3.98-5.22) 08/31/18 07:43 Hgb 11.0 gm/L (11.2-15.7) L 08/31/18 07:43 Hct 33.7 % (34.1-44.9) L 08/31/18 07:43 MCV 79.1 fl (79.4-94.8) L 08/31/18 07:43 MCH 25.8 pg (25.6-32.2) 08/31/18 07:43 MCHC 32.6 g/dl (32.2-35.5) 08/31/18 07:43 RDW Std Deviation 39.1 fL (36.4-46.3) 08/31/18 07:43 Plt Count 269 K/mm3 (182-369) 08/31/18 07:43 MPV 8.9 fl (9.4-12.3) L 08/31/18 07:43 Neut % (Auto) 73.5 % (34.0-71.1) H 08/31/18 07:43 Lymph % (Auto) 13.1 % (19.3-51.7) L 08/31/18 07:43 [place] % (Auto) 11.4 % (4.7-12.5) 08/31/18 07:43 Eos % (Auto) 1.3 (0.7-5.8) 08/31/18 07:43 Baso % (Auto) 0.2 % (0.1-1.2) 08/31/18 07:43 Neut # (Auto) 6.72 K/mm3 (1.56-6.13) H 08/31/18 07:43 Lymph # (Auto) 1.20 K/mm3 (1.18-3.74) 08/31/18 07:43 [place] # (Auto) 1.04 K/mm3 (0.24-0.36) H 08/31/18 07:43 Eos # (Auto) 0.12 K/mm3 (0.04-0.36) 08/31/18 07:43 Baso # (Auto) 0.02 K/mm3 (0.01-0.08) 08/31/18 07:43 - Allergies Allergies/Adverse Reactions: Allergies Allergy/AdvReac Type Severity Reaction Status Date / Time turkey Allergy Headache Uncoded 08/26/18 01:40 - Blood Blood Available: No - Acknowledgements Anesthesia Type Planned: Epidural Pt an Appropriate Candidate for the Planned Anesthesia: Yes Alternatives and Risks of Anesthesia Discussed w Pt/Guardian: Yes Pt/Guardian Understands and Agrees with Anesthesia Plan: Yes PreAnesthesia Questionnaire - Past Health History Medical/Surgical History: Denies Medical/Surgical History HEENT History: Reports: Otitis Media Cardiovascular History: Reports: None Respiratory History: Reports: Asthma Gastrointestinal History: Reports: GERD 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 - Past Surgical History HEENT Surgical History: Reports: LASIK GI Surgical History: Reports: Appendectomy - History Comment History Comment: vits, iron and albuteral inhaler prn - SUBSTANCE USE Smoking Status *Q: Former Smoker (quit 2015) Tobacco Use Within Last Twelve Months: No Second Hand Smoke Exposure: No Days Per Week of Alcohol Use: 0 Recreational Drug Use History: No - HOME MEDS Home Medications: Home Meds Pnv with Ca,No.74/Iron/Fa [ Low Iron Tablet] 1 tab PO DAILY 03/10/18 [ History] - CURRENT (IN HOUSE) MEDS Current Meds: Current Medications Lactated Ringer's (Ringers, Lactated) 1,000 mls @ 100 mls/hr IV ASDIRECTED RUPERT Last Admin: 08/31/18 08:13 Dose: 100 mls/hr Oxytocin/Lactated Ringer's (Pitocin In Lr 10 Units/1,000 Ml) 10 unit in 1,000 mls @ 12 mls/hr IV TITRATE RUPERT; Protocol Last Admin: 08/31/18 08:14 Dose: 2 munits/min, 12 mls/hr Oxytocin/Lactated Ringer's (Pitocin In Lr 10 Units/1,000 Ml) 10 unit in 1,000 mls @ 500 mls/hr IV .CONTINUOUS RUPERT Nalbuphine HCl (Nubain) 10 mg IVPUSH Q2H PRN PRN Reason: pain Sodium Chloride (Saline Flush) 10 ml FLUSH ASDIRECTED PRN PRN Reason: Keep Vein Open
[2018-08-31] MEDS ORDERED: diphenhydrAMINE 50 MG/ML SDV IVPUSH PRN ×2 (08:43→16:00)
[2018-08-31] MEDS ORDERED: ePHEDrine 50 MG/ML SDV IVPUSH PRN ×2 (08:43→16:00)
[2018-08-31] MEDS ORDERED: fentaNYL 100 MCG/2 ML SDV EPIDUR PRN ×2 (08:43→16:00)
[2018-08-31] MEDS ORDERED: fentaNYL/Bupivacaine-NS 2 MCG/ML-0.125%/PF 100 ML Bag EPIDUR ONE ×2 (08:43→16:00)
[2018-08-31] MEDS ORDERED: Lidocaine 1.5% with EPINEPHrine 1:200,000 5 ML Amp ONE (22:00)
[2018-08-31] MEDS ORDERED: Bupivacaine 0.25% 10 ML SDV ONE (22:00)
[2018-09-01] MEDS ORDERED: fentaNYL/Bupivacaine-NS 2 MCG/ML-0.125%/PF 100 ML Bag EPIDUR ONE (01:01)
--- NOTE | 2018-09-01 05:40 | PCM.LDHP ---
L&D History of Present Illness - General Date of Service: 08/31/18 Admit Problem/Dx: Patient Status Order with Admit Dx/Problem 08/31/18 07:31 Patient Status [ADT] Routine Admission Diagnosis/Problem Admission Diagnosis/Problem 09/01/18 08:27 Kylie is a 33-year-old 2 para 1001 female admitted to labor and delivery at 39-1/7 weeks gestational age with an JANES of 09/06/2008. She is admitted for elective induction of labor. Source of Information: Patient History Limitations: Reports: No Limitations - History of Present Illness Introduction:: This is a 33-year-old 2 para 1001 female with an JANES of 2018 presently at 39-1/7 weeks gestational age admitted for elective induction of labor on 08/31/2018. Patient has a history of gestational diabetes but is been under reasonably good control. She is felt to have a large baby for clinical exam. Her JANES of 09/06/2018 is based on an ultrasound on 02/21/2018 at 10-1/7 weeks gestational age. This supported by 3 other ultrasounds done on 04/29/2018, 08/06/2018 and 08/09/2018. Her course other than diagnosis of gestational diabetes has been relatively unremarkable. First visit was on 02/21/2018. Been seen on a regular basis with fundal height growth as appropriate. Weight gain has been from 186-205 pounds for 19 pound weight gain. Last menstrual period was 11/23/2017. Previous obstetric history includes the followin normal spontaneous vaginal delivery at 39-3/7 weeks gestational age. She was induced at that time. She had an 8 lbs. 8 oz. baby and labor was 36 hours in length. She plans to breast-feed with this labs show blood to be O+ with a negative and by screen. Initial first labs showed hemoglobin 12.9 g/dL and platelets 241,000. She is rubella immune, RPR is nonreactive. Urine culture was negative. Hepatitis B surface antigen and HIV assays were both negative. Chlamydia and gonorrhea were both negative. Second trimester laboratory testing showed hemoglobin is 11.9 g/dL and platelets over 232, At that time patient was started on iron supplementation with ferrous sulfate 325 mg per day.Her 1 hour GTT was elevated at 149. She failed her 3 glucose tolerance test with levels of 104 fasting. Her 1 hour was 210, 2 hour was 145 and her 3 hour was 109 g/dL. She was started on dietary restriction and was seen by conservation educator which time she started blood sugar evaluation 4 times per day. With her dietary regulation she maintained relatively good blood sugar levels. Her group B strep screen was negative. Allergies: None. Medications: 1. vitamins daily 2. Ferrous sulfate 325 mg by mouth daily Past medical history: 1. Normal spontaneous vaginal delivery on 06/15/2016 2. Gestational diabetes 3. Asthma Past surgical history: Unremarkable Family history: Mother is alive with Parkinson's disease. Father is alive and healthy. 2 brothers and 2 sisters are all healthy. Paternal grandfather has history of diabetes. Maternal grandmother is healthy. Paternal grandfather has diabetes. Paternal grandmother is healthy. Paternal aunt has history of breast cancer. There is no other family history of cancer, bleeding, blood clotting problems and no related issues or asthma otherwise noted either. New prep social history. Patient is . She is working at a [employer] facility. She does not use any significant most alcohol, drugs or tobacco. She and her Adam lives in [place], [place]. Review of systems: In general patient has no complaints. Baby has been active. Skin: Negative Lungs: No infectious symptoms or shortness of breath Cardiovascular: No chest pain or exercise intolerance Breasts: No lumps, changes in size, pain, dimpling, discharge or axillary or supraclavicular concerns. She has a changes associated with . GI: Negative : Negative other than changes associated with . Musculoskeletal: Negative Neurological: Negative In general the patient is well-developed, well-nourished, pleasant female of stated age in no acute distress. Skin is warm dry without lesions. HEENT, neck and back within normal limits. Lungs are clear with good breath sounds in all lung cai. Cardiovascular exam shows regular and rhythm without murmurs. Breast exam deferred having that done at first visit. Abdomen is flat, soft, nontender without masses or organomegaly. Positive bowel sounds are noted. No inguinal lymphadenopathy or hernias are noted. Genital exam shows cervix to be 2 cm, 70% effaced, soft, -3 station, cephalic presentation, mid position to anterior. Extremities and neurological exam are grossly within normal limits. 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 - Past Surgical History HEENT Surgical History: Reports: LASIK GI Surgical History: Reports: Appendectomy - History Comment History Comment: vits, iron and albuteral inhaler prn Social & Family History - Family History Family Medical History: Noncontributory Neurological: Reports: Parkinson's - Tobacco Use Smoking Status *Q: Former Smoker (quit 2015) Second Hand Smoke Exposure: No - Caffeine Use Caffeine Use: Reports: Coffee Other Caffeine Use: Cup twice per week Caffeine Use Comment: may have a cup or two of coffee - Alcohol Use Days Per Week of Alcohol Use: 0 - Recreational Drug Use Recreational Drug Use: No - Living Situation & Occupation Living situation: Reports: Occupation: Unemployed H&P Review of Systems - Review of Systems: Review Of Systems: See Below L&D Exam - Exam Exam: See Below - Vital Signs Vital Signs: Last Vital Signs Temp 36.5 C 08/31/18 07:31 Pulse 85 08/31/18 09:00 Resp 20 08/31/18 08:40 BP 114/75 08/31/18 09:00 Pulse Ox Weight: 93.894 kg - Patient Data Lab Results Last 24 hrs: Laboratory Results - last 24 hr 08/31/18 08/31/18 Range/Units 07:43 07:43 WBC 9.15 (3.98-10.04) K/mm3 RBC 4.26 (3.98-5.22) M/mm3 Hgb 11.0 L (11.2-15.7) gm/L Hct 33.7 L (34.1-44.9) % MCV 79.1 L (79.4-94.8) fl MCH 25.8 (25.6-32.2) pg MCHC 32.6 (32.2-35.5) g/dl RDW Std Deviation 39.1 (36.4-46.3) fL Plt Count 269 (182-369) K/mm3 MPV 8.9 L (9.4-12.3) fl Neut % (Auto) 73.5 H (34.0-71.1) % Lymph % (Auto) 13.1 L (19.3-51.7) % [place] % (Auto) 11.4 (4.7-12.5) % Eos % (Auto) 1.3 (0.7-5.8) Baso % (Auto) 0.2 (0.1-1.2) % Neut # (Auto) 6.72 H (1.56-6.13) K/mm3 Lymph # (Auto) 1.20 (1.18-3.74) K/mm3 [place] # (Auto) 1.04 H (0.24-0.36) K/mm3 Eos # (Auto) 0.12 (0.04-0.36) K/mm3 Baso # (Auto) 0.02 (0.01-0.08) K/mm3 RPR Non-reactive (NONREACTIVE) Result Diagrams: 08/31/18 07:43 Problem List Initiated/Reviewed/Updated: Yes Orders Last 24hrs: Active Orders 24 hr Category Date Time Status Patient Status Manage Transfer [TRANSFER] Routine ADT 09/01/18 05:37 Ordered Patient Status [ADT] Routine ADT 08/31/18 07:31 Active Activity as Tolerated [RC] PFP Care 08/31/18 07:31 Active Communication Order [RC] ASDIRECTED Care 08/31/18 07:31 Active Heart Tones [RC] ASDIRECTED Care 08/31/18 07:32 Active Non Stress Test [RC] PER UNIT ROUTINE Care 08/31/18 07:31 Active Notify Provider [RC] ASDIRECTED Care 08/31/18 08:43 Active Notify Provider [RC] ASDIRECTED Care 08/31/18 16:00 Active Notify Provider [RC] PFP Care 08/31/18 07:31 Active Notify Provider [RC] PRN Care 08/31/18 07:31 Active Peripheral IV Care [RC] Q2HR Care 08/31/18 07:32 Active Urinary Catheter Assessment [RC] ASDIRECTED Care 08/31/18 07:31 Active Vital Signs [RC] PER UNIT ROUTINE Care 08/31/18 07:31 Active Vital Signs [RC] Q1H Care 08/31/18 18:50 Active Regular Diet [DIET] Diet 08/31/18 Breakfast Active Lactated Ringers [Ringers, Lactated] 1,000 ml Med 08/31/18 07:45 Active IV ASDIRECTED Nalbuphine [Nubain] Med 08/31/18 07:31 Active 10 mg IVPUSH Q2H PRN Oxytocin [Pitocin] 20 unit Med 08/31/18 20:30 Active Lactated Ringers [Ringers, Lactated] 1,000 ml IV TITRATE Oxytocin/Lactated Ringers [Pitocin in LR 10 Units/1,000 Med 08/31/18 07:45 Active ML] 10 unit in 1,000 ml IV .CONTINUOUS Sodium Chloride 0.9% [Saline Flush] Med 08/31/18 07:31 Active 10 ml FLUSH ASDIRECTED PRN diphenhydrAMINE [Benadryl] Med 08/31/18 16:00 Active 25 mg IVPUSH Q6H PRN ePHEDrine [ePHEDrine sulfate] Med 08/31/18 08:43 Active 5 mg IVPUSH ASDIRECTED PRN ePHEDrine [ePHEDrine sulfate] Med 08/31/18 16:00 Active 5 mg IVPUSH ONETIME PRN fentaNYL [Sublimaze] Med 08/31/18 16:00 Active 100 mcg EPIDUR Q3H PRN Electronic Heart Tones Ext w TOCO [WOMSER] Oth 08/31/18 07:31 Ordered Routine Electronic Heart Tones Internal [WOMSER] Per Unit Oth 08/31/18 07:31 Ordered Routine Peripheral IV Insertion Adult [OM.PC] Routine Oth 08/31/18 07:31 Ordered Resuscitation Status Routine Resus Stat 08/31/18 07:31 Ordered Medication Orders Diphenhydramine HCl (Benadryl) 25 mg IVPUSH Q6H PRN PRN Reason: Pruritis Last Admin: 08/31/18 18:37 Dose: 25 mg Ephedrine Sulfate (Ephedrine Sulfate) 5 mg IVPUSH ASDIRECTED PRN PRN Reason: Hypotension Ephedrine Sulfate (Ephedrine Sulfate) 5 mg IVPUSH ONETIME PRN PRN Reason: Hypotension Fentanyl (Sublimaze) 100 mcg EPIDUR Q3H PRN PRN Reason: Pain Lactated Ringer's (Ringers, Lactated) 1,000 mls @ 100 mls/hr IV ASDIRECTED RUPERT Last Admin: 08/31/18 18:37 Dose: 100 mls/hr Infusion: 08/31/18 18:37 Dose: 100 mls/hr Admin: 08/31/18 15:50 Dose: 100 mls/hr Infusion: 08/31/18 15:50 Dose: 100 mls/hr Admin: 08/31/18 08:13 Dose: 100 mls/hr Oxytocin/Lactated Ringer's (Pitocin In Lr 10 Units/1,000 Ml) 10 unit in 1,000 mls @ 500 mls/hr IV .CONTINUOUS RUPERT Oxytocin 20 unit/ Lactated (Ringer's) 1,002 mls @ 66.13 mls/hr IV TITRATE RUPERT; Protocol Last Titration: 09/01/18 04:15 Dose: 27 munits/min, 81.16 mls/hr Titration: 09/01/18 01:40 Dose: 26 munits/min, 78.15 mls/hr Titration: 09/01/18 00:06 Dose: 30 munits/min, 90.18 mls/hr Titration: 08/31/18 23:24 Dose: 28 munits/min, 84.16 mls/hr Titration: 08/31/18 22:50 Dose: 26 munits/min, 78.15 mls/hr Titration: 08/31/18 21:26 Dose: 24 munits/min, 72.14 mls/hr Admin: 08/31/18 20:49 Dose: 22 munits/min, 66.13 mls/hr Nalbuphine HCl (Nubain) 10 mg IVPUSH Q2H PRN PRN Reason: pain Sodium Chloride (Saline Flush) 10 ml FLUSH ASDIRECTED PRN PRN Reason: Keep Vein Open Assessment/Plan Comment:: 1. 39-1/7 week intrauterine admitted for an elective induction of labor 2. History gestational diabetes with good dietary control blood sugars 3. Generally healthy female with 1 previous vaginal delivery 4. Patient plans to breast-feed. 5. Group B strep screen is negative. 6. Rubella titer shows immunity. 7. Patient desire an epidural for labor analgesia. Plan: 1. Pitocin induction of labor with artificial rupture of membranes augmentation to follow. Intermittent heart rate monitoring. Process discussed with patient. 2. Support breast-feed and decision 3. Epidural when necessary patient analgesia. 4. RPR and CBC upon admission.
--- NOTE | 2018-09-01 05:43 | PCM.SN ---
- Free Text/Narrative Note: Kylie is a 33-year-old now 2 para 2002 was admitted for elective induction of labor on 08/31/2018. Induction consisted of Pitocin and artificial rupture membranes. She progressed slowly but steadily to complete cervical dilation by approximately 0430 hrs. on 09/01/2018. She had an epidural in place for labor analgesia. Patient pushed well and delivered a viable, rivero, female infant with Apgars of 8 and 9, weight of 4340 g, a length of 19.7 inches at 0509 hrs. on 09/01/2018. Baby was placed on mom's abdomen. A short thick cord was noted this was clamped 2 and cut by the baby's father. Cord blood was obtained. The baby delivered in a left occiput anterior position. The patient had a shallow second-degree laceration and this was repaired with 3-0 Monocryl in a routine fashion. Placenta delivered in a Gagnon presentation, appeared intact and complete and was discarded per patient desire. The umbilical cord had 3 vessels. Assessment blood loss was 200 mL. Patient plans to breast-feed. Condition: Good
[2018-09-01] MEDS ORDERED: Docusate Sodium 100 MG Cap PO PRN (06:12)
[2018-09-01] MEDS ORDERED: Benzocaine/Menthol 20%-0.5% Spray 56 GM Canister TOP PRN (06:12)
[2018-09-01] MEDS ORDERED: Lanolin 100% Cream 7 GM Tube TOP PRN (06:12)
[2018-09-01] MEDS ORDERED: Acetaminophen 325 MG Tab PO PRN (06:12)
[2018-09-01] MEDS ORDERED: Witch Hazel Medicated Pads 40/Jar TOP PRN (06:12)
--- NOTE | 2018-09-01 08:24 | PCM48HPAN ---
Post Anesthesia Note - EVALUATION WITHIN 48HRS OF ANESTHETIC Patient Participated in Evaluation: Yes Respiratory Function Stable: Yes Airway Patent: Yes Cardiovascular Function Stable: Yes Hydration Status Stable: Yes Pain Control Satisfactory: Yes Nausea and Vomiting Control Satisfactory: Yes Mental Status Recovered: Yes Pulse Rate: 68 SaO2: 98 Resp Rate: 16 Temperature: 98.1 C Blood Pressure: 118/74
[2018-09-01] MEDS: Ibuprofen 600 MG Tab PO PRN ×2 (15:33→21:27)
[2018-09-02 17:28] VITALS: BP 109/47
--- NOTE | 2018-09-02 17:43 | PCM.DCSUM1 ---
Discharge Summary - Hospital Course Free Text/Narrative:: Kylie is a 33-year-old now 2 para 2002 was admitted for elective induction of labor on 08/31/2018. Induction consisted of Pitocin and artificial rupture membranes. She progressed slowly but steadily to complete cervical dilation by approximately 0430 hrs. on 09/01/2018. She had an epidural in place for labor analgesia. Patient pushed well and delivered a viable, rivero, female with Apgars of 8 and 9, weight of 4340 g, a length of 19.7 inches at 0509 hrs. on 09/01/2018. Baby was placed on mom's abdomen. A short thick cord was noted this was clamped 2 and cut by the baby's father. Cord blood was obtained. The baby delivered in a left occiput anterior position. The patient had a shallow second-degree laceration and this was repaired with 3-0 Monocryl in a routine fashion. Placenta delivered in a Gagnon presentation, appeared intact and complete and was discarded per patient desire. The umbilical cord had 3 vessels. Assessment blood loss was 200 mL. Patient plans to breast-feed. Patient has done well . She is nursing without problems, has minimal lochia and is voiding well. She desires discharge home. Diagnosis: Stroke: No - Discharge Data Discharge Date: 09/02/18 Discharge Disposition: Home, Self-Care 01 Condition: Good - Patient Instructions Diet: Regular Diet as Tolerated (Nursing diet with increase calories and calcium is recommended) Activity: As Tolerated (No intercourse or tampons until bleeding resolves) Driving: May Drive Today Showering/Bathing: May Shower (May take a bath) Notify Provider of: Fever, Increased Pain, Swelling and Redness, Nausea and/or Vomiting - Discharge Plan Home Medications: Home Meds Pnv with Ca,No.74/Iron/Fa [ Low Iron Tablet] 1 tab PO DAILY 03/10/18 [ History] Acetaminophen [Tylenol] 650 mg PO Q4H PRN tablet 09/02/18 [Rx] Ibuprofen [Motrin] 600 mg PO Q4H PRN tablet 09/02/18 [Rx] Patient Handouts: Home Care Instructions for Mom Referrals: Anand Aguilar MD [Primary Care Provider] - (Return to clinicDr. Aguilar2 weeks.) - Discharge Summary/Plan Comment DC Time >30 min.: No Discharge Summary/Plan Comment: Discharge instructions: 1. Discharge home 2. Diet, activity and follow-up discussed with patient. Recommend nursing diet with increased calories and calcium. 3. Precautions given concern increased pain, bleeding, temperature, signs/ symptoms of DVT/PE. 4. Medications per home medication was printed, discussed with and given to the patient. 5. Return to clinic-Dr. Aguilar-[facility] in 2 weeks. Diagnosis: Term -delivered Condition: Good - Patient Data Vitals - Most Recent: Last Vital Signs Temp 35.6 C 09/02/18 10:07 Pulse 92 09/02/18 17:22 Resp 18 09/02/18 17:22 BP 109/47 L 09/02/18 17:22 Pulse Ox 97 09/02/18 17:22 Weight - Most Recent: 93.894 kg I&O - Last 24 hours: Intake & Output 09/02/18 09/02/18 09/02/18 06:59 14:59 22:59 Intake Total 120 Balance 120 Med Orders - Current: Current Medications Acetaminophen (Tylenol) 650 mg PO Q4H PRN PRN Reason: mild pain or fever Benzocaine/Menthol (Dermoplast Pain Relief [place]) 0 gm TOP ASDIRECTED PRN PRN Reason: Perineal Comfort Measure Last Admin: 09/01/18 08:52 Dose: 1 canister Docusate Sodium (Colace) 100 mg PO BID PRN PRN Reason: Constipation Last Admin: 09/01/18 08:51 Dose: 100 mg Emollient Ointment (Lansinoh Hpa) 0 gm TOP ASDIRECTED PRN PRN Reason: Sore Nipples Oxytocin 20 unit/ Lactated (Ringer's) 1,002 mls @ 250 mls/hr IV TITRATE RUPERT Last Admin: 09/01/18 06:08 Dose: 250 mls/hr Ibuprofen (Motrin) 600 mg PO Q4H PRN PRN Reason: Mild pain or fever Last Admin: 09/01/18 21:27 Dose: 600 mg Witch Azra (Tucks) 1 pad TOP ASDIRECTED PRN PRN Reason: Pain Last Admin: 09/01/18 08:52 Dose: 1 canister Discontinued Medications Bupivacaine HCl (Sensorcaine-Mpf 0.25%) 10 ml .ROUTE .STK-MED ONE Stop: 08/31/18 22:01 Diphenhydramine HCl (Benadryl) 25 mg IVPUSH Q6H PRN PRN Reason: pruritis Diphenhydramine HCl (Benadryl) 25 mg IVPUSH Q6H PRN PRN Reason: Pruritis Last Admin: 08/31/18 18:37 Dose: 25 mg Ephedrine Sulfate (Ephedrine Sulfate) 5 mg IVPUSH ASDIRECTED PRN PRN Reason: Hypotension Ephedrine Sulfate (Ephedrine Sulfate) 5 mg IVPUSH ONETIME PRN PRN Reason: Hypotension Fentanyl (Sublimaze) 100 mcg EPIDUR Q3H PRN PRN Reason: Pain Last Admin: 08/31/18 16:06 Dose: 100 mcg Fentanyl (Sublimaze) 100 mcg EPIDUR Q3H PRN PRN Reason: Pain Fentanyl/Bupivacaine HCl (Xgiboyqt-Uhntn-Xv 2 Mcg/Ml-0.125%) 100 ml EPIDUR ONETIME ONE Stop: 08/31/18 08:44 Last Admin: 08/31/18 16:35 Dose: 100 ml Fentanyl/Bupivacaine HCl (Alemwaob-Rawyg-Fj 2 Mcg/Ml-0.125%) 100 ml EPIDUR ONETIME ONE Stop: 08/31/18 16:01 Fentanyl/Bupivacaine HCl (Jlydmczc-Xegqw-Gs 2 Mcg/Ml-0.125%) 100 ml EPIDUR ONETIME ONE Stop: 09/01/18 01:02 Last Admin: 09/01/18 01:14 Dose: 100 ml Lactated Ringer's (Ringers, Lactated) 1,000 mls @ 100 mls/hr IV ASDIRECTED RUPERT Last Admin: 08/31/18 18:37 Dose: 100 mls/hr Oxytocin/Lactated Ringer's (Pitocin In Lr 10 Units/1,000 Ml) 10 unit in 1,000 mls @ 12 mls/hr IV TITRATE RUPERT; Protocol Last Titration: 08/31/18 20:00 Dose: 20 munits/min, 120 mls/hr Oxytocin/Lactated Ringer's (Pitocin In Lr 10 Units/1,000 Ml) 10 unit in 1,000 mls @ 500 mls/hr IV .CONTINUOUS RUPERT Oxytocin 20 unit/ Lactated (Ringer's) 1,002 mls @ 66.13 mls/hr IV TITRATE RUPERT; Protocol Last Titration: 09/01/18 04:15 Dose: 27 munits/min, 81.16 mls/hr Lidocaine/Epinephrine (Xylocaine-Mpf 1.5% W/Epinephrine 1:200,000) 5 ml .ROUTE .STK-MED ONE Stop: 08/31/18 22:01 Nalbuphine HCl (Nubain) 10 mg IVPUSH Q2H PRN PRN Reason: pain Sodium Chloride (Saline Flush) 10 ml FLUSH ASDIRECTED PRN PRN Reason: Keep Vein Open
== END 2018-09-02 18:00 | disposition home or self-care (01) | DRG 560 ==
LOC: JD.OB 05:09 → OBSVTOIN 09-01 05:09 → JD.OB 09-01 05:10
PROVIDERS: ADMIT Obstetrics & Gynecology; ATTEND Obstetrics & Gynecology
PROC: 3E0R3BZ Introduction of Anesthetic Agent into Spinal Canal, Percutaneous Approach (ICD-10-PCS; 2018-08-31)
PROC: 00HU33Z Insertion of Infusion Device into Spinal Canal, Percutaneous Approach (ICD-10-PCS; 2018-08-31)
PROC: 10907ZC Drainage of Amniotic Fluid, Therapeutic from Products of Conception, Via Natural or Artificial Opening (ICD-10-PCS; principal; 2018-09-01)
PROC: 0KQM0ZZ Repair Perineum Muscle, Open Approach (ICD-10-PCS; principal; 2018-09-01)
PROC: 10H07YZ Insertion of Other Device into Products of Conception, Via Natural or Artificial Opening (ICD-10-PCS; principal; 2018-09-01)
PROC: 10E0XZZ Delivery of Products of Conception, External Approach (ICD-10-PCS; principal; 2018-09-01)
PROC: 3E033VJ Introduction of Other Hormone into Peripheral Vein, Percutaneous Approach (ICD-10-PCS; principal; 2018-09-01)
PROC: 6A550ZT Pheresis of Cord Blood Stem Cells, Single (ICD-10-PCS; principal; 2018-09-01)
DX: O24.420 Gestational diabetes mellitus in childbirth, diet controlled (principal); Z3A.39 39 weeks gestation of pregnancy; Z37.0 Single live birth; O69.3XX0 Labor and delivery complicated by short cord, not applicable or unspecified; O70.1 Second degree perineal laceration during delivery; O99.214 Obesity complicating childbirth; E66.9 Obesity, unspecified; O99.52 Diseases of the respiratory system complicating childbirth; J45.909 Unspecified asthma, uncomplicated; O99.62 Diseases of the digestive system complicating childbirth; K21.9 Gastro-esophageal reflux disease without esophagitis; Z87.891 Personal history of nicotine dependence; Z91.018 Allergy to other foods
CPT/HCPCS: 36415; 51702; 59025; 59409; 85025; 86592; A9270-GY; J1200; J2590; J3010; J3490; J7120

== ENCOUNTER 2019-02-12 12:55 | Emergency (ER) | payer BC ==
[2019-02-12 13:03] VITALS: BP 126/90; PULSE 70
[2019-02-12] MEDS ORDERED: Sodium Chloride 0.9% 10 ML Syringe FLUSH PRN (13:44)
--- NOTE | 2019-02-12 15:08 | MR ---
MRI brain Technique: T1 and T2 FLAIR sagittal; T1, T2, T2 FLAIR and diffusion axial; T1 FLAIR coronal images were obtained. Comparison: No prior intracranial imaging. Findings: Ventricles along with basal cisterns and sulci over the convexities are within normal limits for the patient's age. No abnormal signal is seen within the brain parenchyma. No midline shift or mass effect is seen. Normal signal void is seen within the major cerebral arteries within the skull base. No acute diffusion abnormalities are seen. Impression: 1. No abnormality is identified on MRI study of the brain. Diagnostic code #1
--- NOTE | 2019-02-12 15:46 | EDM.PDOC ---
ED HPI GENERAL MEDICAL PROBLEM - General Chief Complaint: Neuro Symptoms/Deficits Stated Complaint: PAIN AND NUMBNESS LEFT SIDE Time Seen by Provider: 02/12/19 13:08 Source of Information: Reports: Patient, RN Notes Reviewed - History of Present Illness INITIAL COMMENTS - FREE TEXT/NARRATIVE: 33-year-old female comes in with symptoms of pain shooting down left leg most noticeable medial left thigh and knee yesterday. She is having some numbness and tingling lateral aspect of her leg but also having some numbness in the left shoulder and upper back area and left base. His been no numbness or tingling on the right. No fall or injury. Is very slight headache only. His been no nausea or vomiting. No visual problems. No focal weakness. No difficulty walking. She has had occasional mild numbness in the past but not anything this severe. 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 - Past Surgical History HEENT Surgical History: Reports: LASIK GI Surgical History: Reports: Appendectomy - History Comment History Comment: vits, iron and albuteral inhaler prn Social & Family History - Family History Family Medical History: Noncontributory Neurological: Reports: Parkinson's - Tobacco Use Smoking Status *Q: Never Smoker Second Hand Smoke Exposure: No - Caffeine Use Caffeine Use: Reports: Coffee Other Caffeine Use: Cup twice per week Caffeine Use Comment: may have a cup or two of coffee - Recreational Drug Use Recreational Drug Use: No - Living Situation & Occupation Living situation: Reports: Occupation: Unemployed ED ROS GENERAL - Review of Systems Review Of Systems: See Below Constitutional: Denies: Fever, Chills HEENT: Reports: No Symptoms Respiratory: Denies: Shortness of Breath Cardiovascular: Denies: Chest Pain GI/Abdominal: Denies: Abdominal Pain, Nausea, Vomiting Musculoskeletal: Denies: Neck Pain, Shoulder Pain, Arm Pain, Back Pain Skin: Reports: No Symptoms Neurological: Reports: Dizziness (Mild), Headache (Mild), Numbness, Tingling. Denies: Trouble Speaking, Difficulty Walking, Weakness ED EXAM, NEURO - Physical Exam Exam: See Below General Appearance: Alert, No Apparent Distress Throat/Mouth: Normal Inspection, Normal Oropharynx Head Exam: Atraumatic. No: Facial Swelling Neck: Supple, Full Range of Motion Respiratory/Chest: No Respiratory Distress, Lungs Clear, Normal Breath Sounds Cardiovascular: Regular Rate, Rhythm Neurological: Alert, No Motor/Sensory Deficits, Other (Finger to nose testing normal) Extremities: Normal Inspection, Normal Range of Motion Skin Exam: Warm, Dry, Normal Color, No Rash Course - Vital Signs Last Recorded V/S: Last Vital Signs Temp 97.6 F 02/12/19 13:03 Pulse 70 02/12/19 13:03 Resp 15 02/12/19 13:03 BP 126/90 02/12/19 13:03 Pulse Ox 99 02/12/19 13:03 - Orders/Labs/Meds Orders: Active Orders 24 hr Category Date Time Status Peripheral IV Care [RC] . DIRECTED Care 02/12/19 13:45 Active Sodium Chloride 0.9% [Saline Flush] Med 02/12/19 13:44 Active 10 ml FLUSH ASDIRECTED PRN Peripheral IV Insertion Adult [OM.PC] Stat Oth 02/12/19 13:44 Ordered Medication Orders Sodium Chloride (Saline Flush) 10 ml FLUSH ASDIRECTED PRN PRN Reason: Keep Vein Open Labs: Laboratory Tests 02/12/19 02/12/19 Range/Units 14:27 14:27 WBC 6.64 (3.98-10.04) K/mm3 RBC 5.07 (3.98-5.22) M/mm3 Hgb 14.0 D (11.2-15.7) gm/dl Hct 41.7 (34.1-44.9) % MCV 82.2 D (79.4-94.8) fl MCH 27.6 (25.6-32.2) pg MCHC 33.6 (32.2-35.5) g/dl RDW Std Deviation 42.1 (36.4-46.3) fL Plt Count 275 (182-369) K/mm3 MPV 8.9 L (9.4-12.3) fl Neut % (Auto) 62.6 (34.0-71.1) % Lymph % (Auto) 21.4 (19.3-51.7) % [place] % (Auto) 9.6 (4.7-12.5) % Eos % (Auto) 5.4 (0.7-5.8) Baso % (Auto) 0.5 (0.1-1.2) % Neut # (Auto) 4.16 (1.56-6.13) K/mm3 Lymph # (Auto) 1.42 (1.18-3.74) K/mm3 [place] # (Auto) 0.64 H (0.24-0.36) K/mm3 Eos # (Auto) 0.36 (0.04-0.36) K/mm3 Baso # (Auto) 0.03 (0.01-0.08) K/mm3 Manual Slide Review Not Reportable Sodium 139 (136-145) mEq/L Potassium 3.6 (3.5-5.1) mEq/L Chloride 104 (98-107) mEq/L Carbon Dioxide 26 (21-32) mEq/L Anion Gap 12.6 (5-15) BUN 9 (7-18) mg/dL Creatinine 0.6 (0.55-1.02) mg/dL Est Cr Clr Drug Dosing 103.50 mL/min Estimated GFR (MDRD) > 60 (>60) mL/min BUN/Creatinine Ratio 15.0 (14-18) Glucose 91 (74-106) mg/dL Calcium 9.1 (8.5-10.1) mg/dL Total Bilirubin 0.3 (0.2-1.0) mg/dL AST 25 (15-37) U/L ALT 53 (14-59) U/L Alkaline Phosphatase 83 (46-116) U/L Total Protein 8.0 (6.4-8.2) g/dl Albumin 3.7 (3.4-5.0) g/dl Globulin 4.3 gm/dL Albumin/Globulin Ratio 0.9 L (1-2) Meds: Medications Generic Name Dose Route Start Last Admin Trade Name Freq PRN Reason Stop Dose Admin Sodium Chloride 10 ml 02/12/19 13:44 Saline Flush FLUSH ASDIRECTED PRN Keep Vein Open - Re-Assessments/Exams Free Text/Narrative Re-Assessment/Exam: 02/12/19 16:00 Labs did come back normal, we were able to get her in for an MRI of the head and that also was normal. Discharge instructions as documented. Departure - Departure Time of Disposition: 15:44 Disposition: Home, Self-Care 01 Condition: Fair Clinical Impression: Paresthesias/numbness - Discharge Information Instructions: Paresthesia Referrals: Sabina Jason PA-C [Primary Care Provider] - Forms: ED Department Discharge Additional Instructions: Rest, avoid heavy lifting as best you can, advil or ibuprofen 600 mg 2-3 times daily with food, follow-up with Shadia Jason at the clinic in about 5-7 days for recheck, call for appointment. Return to ED as needed if symptoms worsening in any way. - My Orders Last 24 Hours: My Active Orders 02/12/19 13:44 Sodium Chloride 0.9% [Saline Flush] 10 ml FLUSH ASDIRECTED PRN Peripheral IV Insertion Adult [OM.PC] Stat 02/12/19 13:45 Peripheral IV Care [RC] . DIRECTED - Assessment/Plan Last 24 Hours: My Active Orders 02/12/19 13:44 Sodium Chloride 0.9% [Saline Flush] 10 ml FLUSH ASDIRECTED PRN Peripheral IV Insertion Adult [OM.PC] Stat 02/12/19 13:45 Peripheral IV Care [RC] . DIRECTED
== END 2019-02-12 15:51 | disposition home or self-care (01) ==
LOC: JD.ED 12:55
DX: R20.2 Paresthesia of skin (principal); R20.0 Anesthesia of skin
CPT/HCPCS: 36415; 70551; 70551-26; 80053; 85025; 99284-25

== ENCOUNTER 2019-04-09 20:37 | Emergency (ER) | payer BC ==
[2019-04-09 21:04] VITALS: BP 134/86; PULSE 71
[2019-04-09] MEDS ORDERED: Alum Hydrox/Mag Hydrox/Simeth 30 ML, Lidocaine 2% 10 ML PO ONE ×2 (21:12)
[2019-04-09] MEDS ORDERED: Sodium Chloride 0.9% 10 ML Syringe FLUSH PRN (21:12)
--- NOTE | 2019-04-09 21:14 | EDM.PDOC ---
ED HPI GENERAL MEDICAL PROBLEM - General Chief Complaint: Abdominal Pain Stated Complaint: RIGHT SIDE PAIN Time Seen by Provider: 04/09/19 21:01 Source of Information: Reports: Patient History Limitations: Reports: No Limitations - History of Present Illness INITIAL COMMENTS - FREE TEXT/NARRATIVE: Patient is an unfortunate 33-year-old female who presents to emergency Department today with complaint of left upper quadrant abdominal pain. Patient reports she was in her normal state of health until approximately noon today when she ate and had a sharp stabbing type left upper quadrant pain. Patient reports he symptoms last about a half hour and then resolved. Patient reports then this evening partially 6 PM she started cooking dinner had not eaten and started having sharp stabbing type left upper quadrant pain. Patient reports she took some Tylenol which improved the pain however since the pain is not related she decided come to the emergency department for evaluation. Positive nausea no vomiting no fever no chills no hematemesis no hematochezia and no melena no vaginal bleeding no dysuria no frequency no urgency Treatments VETERINARIAN: Reports: Other (see below) Other Treatments VETERINARIAN: tylenol Left Abdomen Pain Score (Numeric/FACES): 6 - Related Data Allergies Allergy/AdvReac Type Severity Reaction Status Date / Time No Known Allergies Allergy Verified 02/12/19 13:05 Home Meds: Home Meds metFORMIN [Glucophage] 500 mg PO BID 04/09/19 [History] Past Medical History - Past Health History Medical/Surgical History: Denies Medical/Surgical History HEENT History: Reports: Otitis Media Cardiovascular History: Reports: None Respiratory History: Reports: Asthma Gastrointestinal History: Reports: 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 - Past Surgical History HEENT Surgical History: Reports: LASIK GI Surgical History: Reports: Appendectomy - History Comment History Comment: vits, iron and albuteral inhaler prn Social & Family History - Family History Family Medical History: Noncontributory Neurological: Reports: Parkinson's - Tobacco Use Smoking Status *Q: Never Smoker - Caffeine Use Caffeine Use: Reports: Coffee Other Caffeine Use: Cup twice per week Caffeine Use Comment: may have a cup or two of coffee - Recreational Drug Use Recreational Drug Use: No - Living Situation & Occupation Living situation: Reports: Occupation: Unemployed ED ROS GENERAL - Review of Systems Review Of Systems: See Below Constitutional: Denies: Fever, Chills HEENT: Reports: No Symptoms Respiratory: Reports: No Symptoms Cardiovascular: Reports: No Symptoms Endocrine: Reports: No Symptoms GI/Abdominal: Reports: Abdominal Pain, Nausea. Denies: Hematemesis, Hematochezia, Melena, Vomiting : Reports: No Symptoms Musculoskeletal: Reports: No Symptoms Skin: Reports: No Symptoms Neurological: Reports: No Symptoms Psychiatric: Reports: No Symptoms Hematologic/Lymphatic: Reports: No Symptoms Immunologic: Reports: No Symptoms ED EXAM, GI/ABD - Physical Exam Exam: See Below Exam Limited By: No Limitations General Appearance: Alert, WD/WN, Mild Distress Nose: Normal Inspection, Normal Mucosa, No Blood Throat/Mouth: Normal Inspection, Normal Lips, Normal Teeth, Normal Gums, Normal Oropharynx, Normal Voice, No Airway Compromise Head: Atraumatic, Normocephalic Neck: Normal Inspection, Supple, Non-Tender, Full Range of Motion Respiratory/Chest: No Respiratory Distress, Lungs Clear, Normal Breath Sounds, No Accessory Muscle Use, Chest Non-Tender Cardiovascular: Normal Peripheral Pulses, Regular Rate, Rhythm, No Edema, No Gallop, No JVD, No Murmur, No Rub GI/Abdominal Exam: Normal Bowel Sounds, Soft, Tender (All tenderness left upper quadrant moderate tenderness epigastrium and mild tenderness right upper quadrant negative Luna sign) Back Exam: Normal Inspection, Full Range of Motion, NT Extremities: Normal Inspection, Normal Range of Motion, Non-Tender, Normal Capillary Refill, No Pedal Edema Neurological: Alert, Oriented, CN II-XII Intact, Normal Cognition, Normal Gait, Normal Reflexes, No Motor/Sensory Deficits Skin Exam: Warm, Dry, Intact, Normal Color, No Rash Course - Vital Signs Last Recorded V/S: Last Vital Signs Temp 97.7 F 04/09/19 21:00 Pulse 71 04/09/19 21:00 Resp 20 04/09/19 21:00 BP 134/86 04/09/19 21:00 Pulse Ox 99 04/09/19 21:00 - Orders/Labs/Meds Orders: Active Orders 24 hr Category Date Time Status Influenza Vaccine Charge [RC] .DISCHARGE Care 04/09/19 20:59 Active UA W/MICROSCOPIC [URIN] Stat Lab 04/09/19 22:51 Results Sodium Chloride 0.9% [Saline Flush] Med 04/09/19 21:12 Active 10 ml FLUSH ASDIRECTED PRN Saline Lock Insert [OM.PC] Stat Oth 04/09/19 21:11 Ordered Medication Orders Sodium Chloride (Saline Flush) 10 ml FLUSH ASDIRECTED PRN PRN Reason: Keep Vein Open Last Admin: 04/09/19 22:53 Dose: 10 ml Labs: Laboratory Tests 04/09/19 04/09/19 04/09/19 Range/Units 21:12 21:12 21:12 WBC 9.29 (3.98-10.04) K/mm3 RBC 4.87 (3.98-5.22) M/mm3 Hgb 13.6 (11.2-15.7) gm/dl Hct 40.2 (34.1-44.9) % MCV 82.5 (79.4-94.8) fl MCH 27.9 (25.6-32.2) pg MCHC 33.8 (32.2-35.5) g/dl RDW Std Deviation 39.9 (36.4-46.3) fL Plt Count 292 (182-369) K/mm3 MPV 9.2 L (9.4-12.3) fl Neut % (Auto) 60.5 (34.0-71.1) % Lymph % (Auto) 27.1 (19.3-51.7) % Gem % (Auto) 7.6 (4.7-12.5) % Eos % (Auto) 4.3 (0.7-5.8) Baso % (Auto) 0.3 (0.1-1.2) % Neut # (Auto) 5.61 (1.56-6.13) K/mm3 Lymph # (Auto) 2.52 (1.18-3.74) K/mm3 Gem # (Auto) 0.71 H (0.24-0.36) K/mm3 Eos # (Auto) 0.40 H (0.04-0.36) K/mm3 Baso # (Auto) 0.03 (0.01-0.08) K/mm3 Sodium 138 (136-145) mEq/L Potassium 3.9 (3.5-5.1) mEq/L Chloride 102 (98-107) mEq/L Carbon Dioxide 26 (21-32) mEq/L Anion Gap 13.9 (5-15) BUN 14 (7-18) mg/dL Creatinine 0.9 (0.55-1.02) mg/dL Est Cr Clr Drug Dosing 69.00 mL/min Estimated GFR (MDRD) > 60 (>60) mL/min BUN/Creatinine Ratio 15.6 (14-18) Glucose 93 (74-106) mg/dL Calcium 9.2 (8.5-10.1) mg/dL Total Bilirubin 0.4 (0.2-1.0) mg/dL AST 19 (15-37) U/L ALT 38 (14-59) U/L Alkaline Phosphatase 88 (46-116) U/L Total Protein 8.1 (6.4-8.2) g/dl Albumin 3.7 (3.4-5.0) g/dl Globulin 4.4 gm/dL Albumin/Globulin Ratio 0.8 L (1-2) Lipase 116 (73-393) U/L HCG, Qual Negative (NEGATIVE) Urine Color (Yellow) Urine Appearance (Clear) Urine pH (5.0-8.0) Ur Specific [place] (1.005-1.030) Urine Protein (Negative) Urine Glucose (UA) (Negative) Urine Ketones (Negative) Urine Occult Blood (Negative) Urine Nitrite (Negative) Urine Bilirubin (Negative) Urine Urobilinogen (0.2-1.0) Ur Leukocyte Esterase (Negative) 04/09/19 Range/Units 22:51 WBC (3.98-10.04) K/mm3 RBC (3.98-5.22) M/mm3 Hgb (11.2-15.7) gm/dl Hct (34.1-44.9) % MCV (79.4-94.8) fl MCH (25.6-32.2) pg MCHC (32.2-35.5) g/dl RDW Std Deviation (36.4-46.3) fL Plt Count (182-369) K/mm3 MPV (9.4-12.3) fl Neut % (Auto) (34.0-71.1) % Lymph % (Auto) (19.3-51.7) % Gem % (Auto) (4.7-12.5) % Eos % (Auto) (0.7-5.8) Baso % (Auto) (0.1-1.2) % Neut # (Auto) (1.56-6.13) K/mm3 Lymph # (Auto) (1.18-3.74) K/mm3 Gem # (Auto) (0.24-0.36) K/mm3 Eos # (Auto) (0.04-0.36) K/mm3 Baso # (Auto) (0.01-0.08) K/mm3 Sodium (136-145) mEq/L Potassium (3.5-5.1) mEq/L Chloride (98-107) mEq/L Carbon Dioxide (21-32) mEq/L Anion Gap (5-15) BUN (7-18) mg/dL Creatinine (0.55-1.02) mg/dL Est Cr Clr Drug Dosing mL/min Estimated GFR (MDRD) (>60) mL/min BUN/Creatinine Ratio (14-18) Glucose (74-106) mg/dL Calcium (8.5-10.1) mg/dL Total Bilirubin (0.2-1.0) mg/dL AST (15-37) U/L ALT (14-59) U/L Alkaline Phosphatase (46-116) U/L Total Protein (6.4-8.2) g/dl Albumin (3.4-5.0) g/dl Globulin gm/dL Albumin/Globulin Ratio (1-2) Lipase (73-393) U/L HCG, Qual (NEGATIVE) Urine Color Yellow (Yellow) Urine Appearance Clear (Clear) Urine pH 7.5 (5.0-8.0) Ur Specific [place] 1.020 (1.005-1.030) Urine Protein Negative (Negative) Urine Glucose (UA) Negative (Negative) Urine Ketones Negative (Negative) Urine Occult Blood Trace-lysed H (Negative) Urine Nitrite Negative (Negative) Urine Bilirubin Negative (Negative) Urine Urobilinogen 0.2 (0.2-1.0) Ur Leukocyte Esterase Negative (Negative) Meds: Medications Generic Name Dose Route Start Last Admin Trade Name Freq PRN Reason Stop Dose Admin Sodium Chloride 10 ml 04/09/19 21:12 04/09/19 22:53 Saline Flush FLUSH 10 ml ASDIRECTED PRN Administration Keep Vein Open Discontinued Medications Generic Name Dose Route Start Last Admin Trade Name Courtney PRN Reason Stop Dose Admin Al Hydroxide/Mg Hydroxide Confirm 04/09/19 21:25 04/09/19 21:37 Mag-Al Plus Administered 04/09/19 21:26 Not Given Dose 30 ml .ROUTE .STK-MED ONE Al Hydroxide/Mg Hydroxide 30 0 ml 04/09/19 21:12 04/09/19 21:30 ml/ Lidocaine HCl 10 ml PO 04/09/19 21:13 30 ml ONETIME ONE Administration Influenza Virus Vaccine 1 each 04/09/19 20:59 Pharmacy To Dose - Influenza Vaccine IM 04/09/19 21:00 ONETIME ONE Influenza Virus Vaccine 60 mcg 04/09/19 21:15 04/09/19 21:33 Fluzone Quad [id number] Syringe IM 04/09/19 21:16 60 mcg .ONCE ONE Administration Ketorolac Tromethamine 10 mg 04/09/19 21:47 04/09/19 21:53 Toradol IVPUSH 04/09/19 21:48 10 mg ONETIME ONE Administration Morphine Sulfate 4 mg 04/09/19 21:44 Morphine IVPUSH 04/09/19 21:45 ONETIME ONE Morphine Sulfate 4 mg 04/09/19 22:22 04/09/19 22:29 Morphine IVPUSH 04/09/19 22:23 4 mg ONETIME ONE Administration Ondansetron HCl 4 mg 04/09/19 21:16 04/09/19 21:28 Zofran IVPUSH 04/09/19 21:17 4 mg ONETIME ONE Administration - Re-Assessments/Exams Free Text/Narrative Re-Assessment/Exam: 04/09/19 23:08 No clinically significant laboratory abnormalities at this time, suspect patient has GERD, we'll treat as such have patient return for any worsening conditions Departure - Departure Time of Disposition: 23:08 Disposition: Home, Self-Care 01 Clinical Impression: GERD (gastroesophageal reflux disease) Qualifiers: Esophagitis presence: without esophagitis Qualified Code(s): K21.9 - Gastro- esophageal reflux disease without esophagitis - Discharge Information Instructions: Indigestion, [id number] Referrals: Sabina Jason PA-C [Primary Care Provider] - Forms: ED Department Discharge Additional Instructions: Home, rest, Prilosec OTC daily for 1 month, Tums as needed for pain, return as needed if worsening condition - My Orders Last 24 Hours: My Active Orders 04/09/19 20:59 Influenza Vaccine Charge [RC] .DISCHARGE 04/09/19 21:11 Saline Lock Insert [OM.PC] Stat 04/09/19 21:12 Sodium Chloride 0.9% [Saline Flush] 10 ml FLUSH ASDIRECTED PRN 04/09/19 22:51 UA W/MICROSCOPIC [URIN] Stat - Assessment/Plan Last 24 Hours: My Active Orders 04/09/19 20:59 Influenza Vaccine Charge [RC] .DISCHARGE 04/09/19 21:11 Saline Lock Insert [OM.PC] Stat 04/09/19 21:12 Sodium Chloride 0.9% [Saline Flush] 10 ml FLUSH ASDIRECTED PRN 04/09/19 22:51 UA W/MICROSCOPIC [URIN] Stat
[2019-04-09] MEDS ORDERED: FLU Vacc QS2019-20(6MOS+)/PF 60 MCG/0.5 ML SYRINGE IM ONE (21:15)
[2019-04-09] MEDS ORDERED: Ondansetron 4 MG/2 ML SDV IVPUSH ONE (21:16)
[2019-04-09] MEDS ORDERED: Aluminum Hydroxide/Magnesium Hydroxide/Simethicone Susp 30 ML Cup ONE (21:25)
[2019-04-09] MEDS ORDERED: Morphine 4 MG/ML Syringe IVPUSH ONE ×2 (21:44→22:22)
[2019-04-09] MEDS ORDERED: Ketorolac 15 MG/ML SDV IVPUSH ONE (21:47)
== END 2019-04-09 23:16 | disposition home or self-care (01) ==
LOC: JD.ED 20:37
DX: K21.9 Gastro-esophageal reflux disease without esophagitis (principal); Z23 Encounter for immunization
CPT/HCPCS: 36415; 80053; 81001; 83690; 84703; 85025; 90471; 90686; 96374; 96375; 99284; 99284-25; A9270-GY; G0008; J1885; J2270; J2405

== ENCOUNTER 2019-07-19 20:05 | Emergency (ER) | payer BC ==
[2019-07-19 20:20] VITALS: BP 131/89; PULSE 90
[2019-07-19] MEDS ORDERED: Alum Hydrox/Mag Hydrox/Simeth 30 ML, Lidocaine 2% 15 ML PO STA ×2 (22:59)
--- NOTE | 2019-07-19 23:05 | EDM.PDOC ---
ED HPI GENERAL MEDICAL PROBLEM - General Chief Complaint: Chest Pain Stated Complaint: CHEST PAIN RIGHT SIDE HEADACHE Time Seen by Provider: 07/19/19 22:33 Source of Information: Reports: Patient History Limitations: Reports: No Limitations - History of Present Illness INITIAL COMMENTS - FREE TEXT/NARRATIVE: Mrs. Torrez is a very pleasant 33-year-old woman with a past medical history difficult for suspected asthma, GERD, gestational diabetes, and obesity who states that she developed central chest pain this this past Friday night, 07/17. She describes the pain as stabbing and dull in character. It comes and goes, typically lasting about 10 seconds, recurring about 10 times per day. When present, makes it hard for the patient to breathe, and sometimes makes the patient lightheaded. Her pain is made worse with deep inspirations, otherwise, the patient has not identified any modifiers. The patient also reports having the "worst headache of my life" that began suddenly yesterday, Friday, 2019. She describes the headache as pounding in character. It is felt all over her face, and she also feels extreme pressure in both of her ears. No associated nausea or vomiting. No photophobia or phonophobia. No neurologic symptoms, such as tingling, numbness, or weakness. She reports blurry vision, but notes that this is been going on for a week, and states that she was seen at the walk-in clinic 2 weeks ago secondary to itchiness around her eyes. She was diagnosed with "pinkeye" and prescribed an antibiotic eyedrop. Her itchy eyes resolved, but then recurred. She is out of antibiotic ointment. The patient states that she has a history of migraine headaches. She used to have a number of them when she was younger, then they resolved, but have recurred with lesser frequency in more recent years. She states that her current headache is different than prior migraines. Other than the eye issue, the patient denies any recent fever, chills, cough, dyspnea, palpitations, nausea, vomiting, constipation, diarrhea, abdominal pain , urinary symptoms, recent weight gain or weight loss, recent bloody bowel movements or black bowel movements, recent joint aches, or rashes. The patient believes last imaging study of her head was an MRI about 6 months ago. The patient's PCP is JENNI Kuo. Her Sales Consultant is Dr. Anand Aguilar. She received an influenza vaccine this season. Middle Chest Pain Score (Numeric/FACES): 6 - Related Data Allergies Allergy/AdvReac Type Severity Reaction Status Date / Time No Known Allergies Allergy Verified 07/19/19 20:20 Home Meds: Home Meds metFORMIN [Glucophage] 500 mg PO BID 04/09/19 [History] Rizatriptan Benzoate [Rizatriptan] 1 tab PO Q2H PRN #3 tab.rapdis 07/20/19 [Rx] Past Medical History Respiratory History: Reports: Asthma (suspected, not tested) Gastrointestinal History: Reports: GERD : 2 Para: 2 Neurological History: Reports: Migraines Endocrine/Metabolic History: Reports: Diabetes, Gestational, Obesity/BMI 30+ - Infectious Disease History Infectious Disease History: Reports: Hepatitis A (1995) - Past Surgical History HEENT Surgical History: Reports: LASIK (bilateral) GI Surgical History: Reports: Appendectomy - History Comment History Comment: vits, iron and albuteral inhaler prn Social & Family History - Family History Family Medical History: Noncontributory Neurological: Reports: Parkinson's - Tobacco Use Smoking Status *Q: Former Smoker Years of Tobacco use: 13 Packs/Tins Daily: 0.1 Month/Year Tobacco Last Used: Quit 2015 - Caffeine Use Caffeine Use: Reports: Coffee Other Caffeine Use: Cup twice per week Caffeine Use Comment: may have a cup or two of coffee - Alcohol Use Alcohol Use History: Yes Alcohol Use Frequency: Rarely - Recreational Drug Use Recreational Drug Use: No - Living Situation & Occupation Living situation: Reports: , with Spouse, with Family (4 kids) 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 ED EXAM, GENERAL - Physical Exam Exam: See Below Exam Limited By: No Limitations General Appearance: Alert, WD/WN, No Apparent Distress Eye Exam: Bilateral Eye: EOMI, Nystagmus, PERRL Ears: Normal External Exam, Normal Canal, Hearing Grossly Normal, Normal TMs Nose: Normal Inspection, Normal Mucosa, No Blood Throat/Mouth: Normal Inspection, Normal Lips, Normal Teeth, Normal Gums, Normal Oropharynx, Normal Voice, No Airway Compromise Head: Atraumatic, Normocephalic Neck: Normal Inspection, Supple, Non-Tender, Full Range of Motion. No: Lymphadenopathy (L), Lymphadenopathy (R) Respiratory/Chest: No Respiratory Distress, Lungs Clear, Normal Breath Sounds, No Accessory Muscle Use, Chest Non-Tender (including the sternum) Cardiovascular: Normal Peripheral Pulses, Regular Rate, Rhythm, No Gallop, No JVD, No Murmur, No Rub Peripheral Pulses: 4+: Radial (L), Radial (R) GI/Abdominal: Normal Bowel Sounds, Soft, Non-Tender, No Organomegaly, No Distention, No Abnormal Bruit, No Mass (Female) Exam: Deferred Rectal (Female) Exam: Deferred Back Exam: Normal Inspection, Full Range of Motion. No: CVA Tenderness (L), CVA Tenderness (R) Extremities: Normal Inspection, Normal Range of Motion, No Pedal Edema, Normal Capillary Refill Neurological: Alert, Oriented, CN II-XII Intact, Normal Cognition, No Motor/ Sensory Deficits Psychiatric: Normal Affect Skin Exam: Warm, Dry, Intact, Normal Color, No Rash EKG INTERPRETATION EKG Date: 07/19/19 Time: 20:38 Rhythm: NSR Rate (Beats/Min): 88 Mcleod: Normal P-Wave: Present QRS: Normal ST-T: Normal QT: Normal Comparison: NA - No Prior EKG Course - Vital Signs Last Recorded V/S: Last Vital Signs Temp 37.4 C 07/19/19 20:18 Pulse 90 07/19/19 20:18 Resp 16 07/19/19 20:18 BP 131/89 07/19/19 20:18 Pulse Ox 97 07/19/19 20:18 - Orders/Labs/Meds Orders: Active Orders 24 hr Category Date Time Status Head wo Cont [CT] Stat Exams 07/19/19 22:59 Taken Meds: Medications Discontinued Medications Generic Name Dose Route Start Last Admin Trade Name Freq PRN Reason Stop Dose Admin Al Hydroxide/Mg Hydroxide 30 0 ml 07/19/19 22:59 07/19/19 23:26 ml/ Lidocaine HCl 15 ml PO 07/19/19 23:00 45 ml ONETIME STA Administration Famotidine 40 mg 07/20/19 00:35 07/20/19 00:41 Pepcid PO 07/20/19 00:36 40 mg ONETIME STA Administration Haloperidol Lactate 5 mg 07/20/19 00:35 07/20/19 00:41 Haldol IM 07/20/19 00:36 5 mg ONETIME ONE Administration - Re-Assessments/Exams Free Text/Narrative Re-Assessment/Exam: 07/19/19 23:00 The patient presents with 2 problems: 1. A headache of sudden onset, the worst of her life 2. Retrosternal chest pain With respect to the patient's headache, I have ordered a CT of the head to rule out a subarachnoid hemorrhage, however, I suspect that her headache is a migraine, despite the fact that it is different than prior well-established migraines. Provided the CT scan of her head is negative, I will treated with IM Haldol, to see if that helps. With respect to the patient's retrosternal chest pain, it is most likely due to GERD, especially since it is made worse if she takes a deep breath. The patient will receive a GI cocktail, to see if that helps. 07/20/19 00:12 CT of the head without contrast as read by Tita as "No acute intracranial abnormality." 07/20/19 00:35 CT results discussed with the patient. She reports modest improvement in her chest pain following a GI cocktail. As above, this is consistent with GERD. I will start the patient on oral famotidine. Her headache is unchanged. She is agreeable to trying an injection of Haldol. If her headache is due to a migraine, the Haldol should abort at in 15 to 20 minutes. If it is not a migraine, the Haldol will do nothing. 07/20/19 01:08 Following IM Haldol, the patient now reports that her headache is completely resolved, confirming that it was a migraine. I will discharge her home with a prescription for rizatriptan. I will also have her take [id number] famotidine on a regular basis. Departure - Departure Time of Disposition: 01:08 Disposition: Home, Self-Care 01 Condition: Good Clinical Impression: Migraine without aura GERD (gastroesophageal reflux disease) Qualifiers: Esophagitis presence: without esophagitis Qualified Code(s): K21.9 - Gastro- esophageal reflux disease without esophagitis - Discharge Information *PRESCRIPTION DRUG MONITORING PROGRAM REVIEWED*: Not Applicable *COPY OF PRESCRIPTION DRUG MONITORING REPORT IN PATIENT GRAY: Not Applicable Referrals: Sabina Jason PA-C [Primary Care Provider] - Anand Aguilar MD [Physician] - Forms: ED Department Discharge Additional Instructions: You were seen in the emergency room for chest pain and a headache. Work-up in the ER included a CT scan of your head without contrast, and an ECG, both of which were normal. Your chest pain improved somewhat following a GI cocktail, indicating that your chest pain is most likely to GERD = acid reflux. You have been started on the antacid medicine famotidine (Pepcid). Famotidine is available [id number], and the generic is just as good as the brand name. We recommend that you take 1 tablet of famotidine either once or twice a day on a regular basis. Your headache resolved after an injection of Haldol, confirming that your headache was due to a migraine. Get plenty of rest tonight in a dark, quiet place. Stay adequately hydrated. A prescription for the anti-migraine medicine rizatriptan (Maxalt) has been sent to the [facility], located just south and across the [address] from [facility]. Dissolve 1 tablet of rizatriptan in your mouth like a lozenge at the earliest sign of a migraine. You may repeat after 2 hours, if necessary, up to 3 tablets within a 24-hour period. If the rizatriptan works to treat your migraines, talk to your PCP about getting another prescription. If any other problems, please do not hesitate to return to the ER. Sepsis Event Note - Evaluation Sepsis Screening Result: No Definite Risk - Focused Exam Vital Signs: Vital Signs Temp Pulse Resp BP Pulse Ox 07/19/19 20:18 37.4 C 90 16 131/89 97 Date Exam was Performed: 07/20/19 Time Exam was Performed: 01:08 - My Orders Last 24 Hours: My Active Orders 07/19/19 22:59 Head wo Cont [CT] Stat - Assessment/Plan Last 24 Hours: My Active Orders 07/19/19 22:59 Head wo Cont [CT] Stat
[2019-07-20] MEDS ORDERED: Famotidine 20 MG Tab PO STA (00:35)
[2019-07-20] MEDS ORDERED: Haloperidol Lactate 5 MG/ML SDV IM ONE (00:35)
--- NOTE | 2019-07-20 07:16 | CT ---
Head CT Technique: Multiple axial sections through the brain were obtained. Intravenous contrast was not utilized. Comparison: No prior intracranial imaging is available. Findings: Ventricles along with basal cisterns and sulci over the convexities are within normal limits for the patient's age. No abnormal parenchymal densities are seen. No evidence of intracranial hemorrhage. No midline shift or mass-effect is seen. Bone settings were reviewed. Visualized mastoid sinuses and visualized paranasal sinuses show nothing acute. Impression: 1. No abnormality is identified on noncontrast head CT exam. Diagnostic code #1 This report was dictated in Mountain Standard Time I agree with preliminary report from [facility], finalized on 07/20/19, 12:43 AM Central Time
== END 2019-07-20 01:25 | disposition home or self-care (01) ==
LOC: JD.ED 20:05
DX: G43.009 Migraine without aura, not intractable, without status migrainosus (principal); K21.9 Gastro-esophageal reflux disease without esophagitis; Z79.84 Long term (current) use of oral hypoglycemic drugs; Z87.891 Personal history of nicotine dependence
CPT/HCPCS: 70450; 93005; 96372; 99285; A9270; J1630; 93010; 99284

== ENCOUNTER 2020-08-01 08:57 | Emergency (ER) | payer OTHER ==
[2020-08-01] MEDS ORDERED: Sodium Chloride 0.9% 10 ML Syringe FLUSH PRN (09:42)
[2020-08-01] MEDS ORDERED: Ketorolac 30 MG/ML SDV IVPUSH ONE (09:42)
--- NOTE | 2020-08-01 09:54 | EDM.PDOC ---
ED HPI GENERAL MEDICAL PROBLEM - General Chief Complaint: Back Pain or Injury Stated Complaint: BACK/ABDOMINAL PAIN Time Seen by Provider: 08/01/20 09:06 Source of Information: Reports: Patient History Limitations: Reports: No Limitations - History of Present Illness INITIAL COMMENTS - FREE TEXT/NARRATIVE: 35-year-old female presents to the emergency department with complaints of low back and lower abdominal pain. She states she has developed right sided low back pain on Friday. She states that she did vomit once on Friday evening and has not been nauseated or vomited since. She states that the back pain has progressively gotten worse since Friday and it has now progressed to her left side and radiates around her abdomen and into her pelvis on both sides. She states the pain is a colicky type of pain. She is attempted to take Tylenol and use heat however she states this does not help. She is unable to lay flat in the bed because this makes the pain worse. 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 She denies any recent fever other dewayne n last evening she states her temp was 99, she has not been chilled, has not vomited since Friday night and has not had any diarrhea. She states that she has had urinary frequency but no burning. She has not noted any hematuria. She states she had a bowel movement this morning and this was normal. She states she does have a history of kidney stones approximately 10 years ago however this does not feel similar to that. Was seen at the walk-in clinic last week for right upper quadrant abdominal pain and they did do a work-up which included ultrasound of her gallbladder and this was unremarkable as well. Onset: Gradual Onset Date: 07/29/20 Location: Reports: Back, Pelvis Quality: Reports: Sharp, Stabbing Severity: Severe Improves with: Reports: None Worsens with: Reports: Immobilization Treatments PRODUCT GRADER: Reports: Acetaminophen Abdomen Pain Score (Numeric/FACES): 8 - Related Data Allergies Allergy/AdvReac Type Severity Reaction Status Date / Time No Known Allergies Allergy Verified 08/01/20 09:06 Home Meds: Home Meds metroNIDAZOLE [Flagyl] 500 mg PO BID #14 tablet 08/01/20 [Rx] Past Medical History - Past Health History Medical/Surgical History: Denies Medical/Surgical History HEENT History: Reports: Otitis Media Cardiovascular History: Reports: None Respiratory History: Reports: Asthma Gastrointestinal History: Reports: GERD Genitourinary History: Reports: Renal Calculus [employer] INST[employer]ER History: Reports: Musculoskeletal History: Reports: None Neurological History: Reports: Migraines Psychiatric History: Reports: None Endocrine/Metabolic History: Reports: Diabetes, Gestational, Obesity/BMI 30+ Hematologic History: Reports: None Immunologic History: Reports: None Oncologic (Cancer) History: Reports: None Dermatologic History: Reports: None - Infectious Disease History Infectious Disease History: Reports: Hepatitis A Other Infectious Disease History: history of hep B in [place] in 1995, was cleared. - Past Surgical History Head Surgeries/Procedures: Reports: None HEENT Surgical History: Reports: LASIK Other Respiratory Surgeries/Procedures: has not used an inhaler in past two monthe GI Surgical History: Reports: Appendectomy - History Comment History Comment: vits, iron and albuteral inhaler prn Social & Family History - Family History Family Medical History: No Pertinent Family History Cardiac: Reports: Hypertension : Reports: Renal Calculus Neurological: Reports: Parkinson's Endocrine/Metabolic: Reports: Diabetes, type II - Tobacco Use Tobacco Use Status *Q: Former Tobacco User Used Tobacco, but Quit: Yes Month/Year Tobacco Last Used: 09/2015 - Caffeine Use Caffeine Use: Reports: Coffee Other Caffeine Use: Cup twice per week Caffeine Use Comment: may have a cup or two of coffee - Recreational Drug Use Recreational Drug Use: No - Living Situation & Occupation Living situation: Reports: , with Spouse, with Family (4 kids) 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 Denies: Chills, Diaphoresis, Decreased Appetite HEENT: Reports: No Symptoms Respiratory: Reports: No Symptoms Cardiovascular: Reports: No Symptoms Endocrine: Reports: No Symptoms GI/Abdominal: Reports: Abdominal Pain (Lower abdomen into pelvis), Vomiting (Once on Friday evening which was 3 days ago the pain developed.). Denies: Constipation, Diarrhea, Decreased Appetite, Nausea : Reports: Frequency. Denies: Dysuria, Flank Pain, Hematuria, Incontinence Musculoskeletal: Reports: Back Pain (Low back pain radiating into the pelvis) Skin: Reports: No Symptoms Neurological: Reports: No Symptoms Psychiatric: Reports: No Symptoms Hematologic/Lymphatic: Reports: No Symptoms Immunologic: Reports: No Symptoms ED EXAM, RENAL/ - Physical Exam Exam: See Below Exam Limited By: No Limitations General Appearance: Alert, WD/WN, Moderate Distress Ears: Normal External Exam, Hearing Grossly Normal Nose: Normal Inspection, Normal Mucosa Throat/Mouth: Normal Inspection, Normal Lips, Normal Voice, No Airway Compromise Head: Atraumatic, Normocephalic Neck: Normal Inspection, Supple, Non-Tender, Full Range of Motion Respiratory/Chest: No Respiratory Distress, Lungs Clear, Normal Breath Sounds, No Accessory Muscle Use, Chest Non-Tender Cardiovascular: Normal Peripheral Pulses, Regular Rate, Rhythm, No Edema, No Murmur GI/Abdominal: Normal Bowel Sounds, Soft, No Distention, Guarding, Tender (Right and left lower quadrant into the prepubic area). No: Rigid (Female) Exam: Deferred, Adnexal Tenderness, Cervical Discharge, Cervical Fluid, Cervix Motion Tenderness, Vaginal Discharge. No: Cervical Lesions, Va ginal Bleeding, Vaginal Lesions, Vaginal Tears Rectal (Female) Exam: Deferred Back Exam: Normal Inspection, Full Range of Motion, CVA Tenderness (L), CVA Tenderness (R) Extremities: Normal Inspection, Normal Range of Motion, Non-Tender, No Pedal Edema, Normal Capillary Refill Neurological: Alert, Oriented, Normal Cognition Psychiatric: Normal Affect, Normal Mood Skin Exam: Warm, Dry, Intact, Normal Color, No Rash Lymphatic: No Adenopathy Course - Vital Signs Text/Narrative:: 35-year-old female with complaints of low back pain radiating into the lower abdomen. Patient states this started on Friday when she developed right-sided low back pain however it has progressed to bilateral low back pain radiating around her abdomen and into her pelvis. The pain is a colicky type of pain. She states she does have urinary frequency however no burning. Denies any hematuria type symptoms. States she has not had any issues with constipation or diarrhea, last bowel movement was this morning and this was normal. Temp of 99 last evening. Denies chills otherwise. Has vomited once on Friday evening and no further nausea and vomiting noted since then. States her appetite has been normal and she is eating and drinking per her normal. Recently seen at [facility] last week and worked up for gallbladder issues however ultrasound revealed this was unremarkable. I have ordered labs, urinalysis, and Toradol for the pain. Last Recorded V/S: Last Vital Signs Temp 97.0 F 08/01/20 09:11 Pulse 88 08/01/20 09:11 Resp 20 08/01/20 09:11 BP 131/86 08/01/20 09:11 Pulse Ox 98 08/01/20 09:11 - Orders/Labs/Meds Orders: Active Orders 24 hr Category Date Time Status GENITAL CULTURE [MREF] Stat Lab 08/01/20 11:00 Received Sodium Chloride 0.9% [Saline Flush] Med 08/01/20 09:42 Active 10 ml FLUSH ASDIRECTED PRN Saline Lock Insert [OM.PC] Stat Oth 08/01/20 09:42 Ordered Labs: Laboratory Tests 08/01/20 08/01/20 08/01/20 Range/Units 09:10 09:10 10:10 WBC 7.72 (3.98-10.04) K/mm3 RBC 4.66 (3.98-5.22) M/mm3 Hgb 13.3 (11.2-15.7) gm/dl Hct 40.2 (34.1-44.9) % MCV 86.3 (79.4-94.8) fl MCH 28.5 (25.6-32.2) pg MCHC 33.1 (32.2-35.5) g/dl RDW Std Deviation 40.6 (36.4-46.3) fL Plt Count 301 (182-369) K/mm3 MPV 9.0 L (9.4-12.3) fl Neut % (Auto) 67.2 (34.0-71.1) % Lymph % (Auto) 22.4 (19.3-51.7) % [place] % (Auto) 7.1 (4.7-12.5) % Eos % (Auto) 2.8 (0.7-5.8) Baso % (Auto) 0.4 (0.1-1.2) % Neut # (Auto) 5.18 (1.56-6.13) K/mm3 Lymph # (Auto) 1.73 (1.18-3.74) K/mm3 [place] # (Auto) 0.55 H (0.24-0.36) K/mm3 Eos # (Auto) 0.22 (0.04-0.36) K/mm3 Baso # (Auto) 0.03 (0.01-0.08) K/mm3 Sodium (136-145) mEq/L Potassium (3.5-5.1) mEq/L Chloride (98-107) mEq/L Carbon Dioxide (21-32) mEq/L Anion Gap (5-15) BUN (7-18) mg/dL Creatinine (0.55-1.02) mg/dL Est Cr Clr Drug Dosing mL/min Estimated GFR (MDRD) (>60) mL/min BUN/Creatinine Ratio (14-18) Glucose (74-106) mg/dL Calcium (8.5-10.1) mg/dL Total Bilirubin (0.2-1.0) mg/dL AST (15-37) U/L ALT (14-59) U/L Alkaline Phosphatase (46-116) U/L C-Reactive Protein (<1.0) mg/dL Total Protein (6.4-8.2) g/dl Albumin (3.4-5.0) g/dl Globulin gm/dL Albumin/Globulin Ratio (1-2) Urine Color Yellow (Yellow) Urine Appearance Clear (Clear) Urine pH 7.0 (5.0-8.0) Ur Specific [place] 1.025 (1.005-1.030) Urine Protein Negative (Negative) Urine Glucose (UA) Negative (Negative) Urine Ketones Negative (Negative) Urine Occult Blood Negative (Negative) Urine Nitrite Negative (Negative) Urine Bilirubin Negative (Negative) Urine Urobilinogen 0.2 (0.2-1.0) Ur Leukocyte Esterase Negative (Negative) Urine HCG, Qual Negative (NEGATIVE) C trachomatis DNA (PCR) N gonorrhoeae DNA (PCR) 08/01/20 08/01/20 Range/Units 10:10 11:00 WBC (3.98-10.04) K/mm3 RBC (3.98-5.22) M/mm3 Hgb (11.2-15.7) gm/dl Hct (34.1-44.9) % MCV (79.4-94.8) fl MCH (25.6-32.2) pg MCHC (32.2-35.5) g/dl RDW Std Deviation (36.4-46.3) fL Plt Count (182-369) K/mm3 MPV (9.4-12.3) fl Neut % (Auto) (34.0-71.1) % Lymph % (Auto) (19.3-51.7) % [place] % (Auto) (4.7-12.5) % Eos % (Auto) (0.7-5.8) Baso % (Auto) (0.1-1.2) % Neut # (Auto) (1.56-6.13) K/mm3 Lymph # (Auto) (1.18-3.74) K/mm3 [place] # (Auto) (0.24-0.36) K/mm3 Eos # (Auto) (0.04-0.36) K/mm3 Baso # (Auto) (0.01-0.08) K/mm3 Sodium 139 (136-145) mEq/L Potassium 4.1 (3.5-5.1) mEq/L Chloride 104 (98-107) mEq/L Carbon Dioxide 26 (21-32) mEq/L Anion Gap 13.1 (5-15) BUN 11 (7-18) mg/dL Creatinine 0.7 (0.55-1.02) mg/dL Est Cr Clr Drug Dosing 87.03 mL/min Estimated GFR (MDRD) > 60 (>60) mL/min BUN/Creatinine Ratio 15.7 (14-18) Glucose 104 (74-106) mg/dL Calcium 8.7 (8.5-10.1) mg/dL Total Bilirubin 0.3 (0.2-1.0) mg/dL AST 28 (15-37) U/L ALT 62 H (14-59) U/L Alkaline Phosphatase 72 (46-116) U/L C-Reactive Protein 0.6 (<1.0) mg/dL Total Protein 7.6 (6.4-8.2) g/dl Albumin 3.5 (3.4-5.0) g/dl Globulin 4.1 gm/dL Albumin/Globulin Ratio 0.9 L (1-2) Urine Color (Yellow) Urine Appearance (Clear) Urine pH (5.0-8.0) Ur Specific [place] (1.005-1.030) Urine Protein (Negative) Urine Glucose (UA) (Negative) Urine Ketones (Negative) Urine Occult Blood (Negative) Urine Nitrite (Negative) Urine Bilirubin (Negative) Urine Urobilinogen (0.2-1.0) Ur Leukocyte Esterase (Negative) Urine HCG, Qual (NEGATIVE) C trachomatis DNA (PCR) Not detected N gonorrhoeae DNA (PCR) Not detected - Re-Assessments/Exams Free Text/Narrative Re-Assessment/Exam: 08/01/20 11:13 CBC is unremarkable, chemistry shows an elevated ALT of 62, C-reactive protein 0.6 Urinalysis is unremarkable and urine hCG is negative. Pelvic exam was completed. There is a significant amount of creamy white vaginal discharge. Cultures, wet prep, and swab from [place] and gonorrhea were taken. Manual exam was performed and the patient has significant adnexal tenderness bilaterally however she states greater on the left than the right. I have ordered a non-OB transvaginal ultrasound. 08/01/20 12:30 9 OB transvaginal pelvic ultrasound radiologist impression: 1. Uterus is anteverted. Small hyperechoic area is seen within the endometrial cavity or 7 endometrial location. This measures about 2 mm. Small hyperechoic area is seen within the cervix, possibly due to a minimally hemorrhagic nabothian cyst. No other myometrial abnormality is appreciated. Endometrial thickness is 5 mm. 2. Other portions of the pelvic ultrasound appear unremarkable. 08/01/20 13:19 Wet prep final: Yeast none seen, trichomonas none seen, clue cells moderate, WBCs many, epis many, RBCs rare Chlamydia and gonorrhea swabs are a send out so we will have that those back until tomorrow at the soonest. I spoke with Dr. 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 He would like to see her in the clinic later this week. Pt will be discharged with a prescription for Flagyl bid x 7 days. Departure - Departure Time of Disposition: 13:43 Disposition: Home, Self-Care 01 Condition: Good Clinical Impression: Bacterial vaginosis - Discharge Information Prescriptions: metroNIDAZOLE [Flagyl] 500 mg PO BID #14 tablet Referrals: Sabina Jason PA-C [Primary Care Provider] - Forms: ED Department Discharge Additional Instructions: You were seen in the emergency department today with complaints of low back pain radiating anterior pelvis. Labs were essentially unremarkable and did not show any significant signs of infection however a vaginal exam was completed and cultures were sent. You did have bacterial vaginosis so you will be treated with Flagyl 500 mg twice daily for a total of 7 days. Please take this medication until it completely gone. Also recommend that you take a good probiotic and eat lots of yogurt while taking this medication to prevent a yeast infection. Do not drink any alcohol within 72 hours of taking this medication because it can cause vomiting. You were also treated for chlamydia and gonorrhea however we did not have positive cultures on this. We are just dannie ting prophylactically because of the severity of your pelvic pain. You are given Zithromax and Rocephin to treat this. We should have those results in the next 24 to 48 hours. Go home and rest. Take Tylenol 650 mg alternating with ibuprofen 600 mg every 4 hours for the next 48 hours until the antibiotics take effect. Dr. Aguilar would like to see you in the clinic later this week for follow-up. He will be able to give you the results of the cultures that were taken today in the hospital. We did do transvaginal ultrasound as well and this did not show anything significant. Sepsis Event Note (ED) - Evaluation Sepsis Screening Result: No Definite Risk - Focused Exam Vital Signs: Vital Signs Temp Pulse Resp BP Pulse Ox 08/01/20 09:11 97.0 F 88 20 131/86 98 - My Orders Last 24 Hours: My Active Orders 08/01/20 09:42 Sodium Chloride 0.9% [Saline Flush] 10 ml FLUSH ASDIRECTED PRN Saline Lock Insert [OM.PC] Stat 08/01/20 11:00 GENITAL CULTURE [MREF] Stat - Assessment/Plan Last 24 Hours: My Active Orders 08/01/20 09:42 Sodium Chloride 0.9% [Saline Flush] 10 ml FLUSH ASDIRECTED PRN Saline Lock Insert [OM.PC] Stat 08/01/20 11:00 GENITAL CULTURE [MREF] Stat
[2020-08-01] MEDS ORDERED: HYDROmorphone 0.5 MG/0.5 ML Syringe IVPUSH ONE ×2 (10:36→13:22)
[2020-08-01] MEDS ORDERED: Ondansetron 4 MG/2 ML SDV IVPUSH ONE (10:36)
--- NOTE | 2020-08-01 12:20 | US ---
Pelvic ultrasound: Multiple real-time images were obtained transvaginally. Comparison: No previous pelvic imaging is available. Findings: Uterus is anteverted. Small hyperechoic area is seen within the endometrial cavity or subendometrial location. This measures about 2 mm. Small hyperechoic area is seen within the cervix, possibly due to a minimally hemorrhagic nabothian cyst. No other myometrial abnormality is appreciated. Endometrial thickness is 5 mm. No free fluid is seen. Right and left ovaries are identified and show no evidence of adnexal abnormality. Measurements: Uterus: Length 8.3 cm, AP height 4.2 cm, transverse width 6.0 cm Right ovary: 2.0 x 1.7 x 2.0 cm Left ovary: 2.4 x 1.8 x 1.5 cm Impression: 1. Two small findings believed to be incidental as described above. 2. Other portions of the pelvic ultrasound appear unremarkable. Diagnostic code #2
[2020-08-01 13:08] LABS: C. TRACHOMATIS BY PCR NOT DETECTED; N. GONORRHOEAE BY PCR NOT DETECTED
[2020-08-01] MEDS ORDERED: cefTRIAXone 250 MG, Lidocaine 1% 0.9 ML IM ONE ×2 (13:20)
[2020-08-01] MEDS ORDERED: Azithromycin 250 MG Tab PO ONE (13:20)
[2020-08-01 14:01] VITALS: BP 120/68; PULSE 70
== END 2020-08-01 14:02 | disposition home or self-care (01) ==
LOC: JD.ED 08:57
DX: N76.0 Acute vaginitis (principal); B96.89 Other specified bacterial agents as the cause of diseases classified elsewhere; J45.909 Unspecified asthma, uncomplicated; E66.9 Obesity, unspecified; Z68.36 Body mass index [BMI] 36.0-36.9, adult; Z87.891 Personal history of nicotine dependence
CPT/HCPCS: 36415; 76830; 80053; 81003; 81025; 85025; 86140; 87070; 87205; 87210; 87491; 87591; 87808; 96372; 96374; 96375; 96376; 99284; A9270; J0696; J1170; J1885; J2405; 99283